=== PATIENT | male | born 1940 | race Asian ===

== ENCOUNTER 2020-05-14 08:25 | Inpatient (IN) | payer MEDICARE, MEDICAID ==
[~2020-05-14] VITALS: Ht 165.1 cm; Wt 76.7 kg
[2020-05-14 08:41] VITALS: BP 122/64
--- NOTE | 2020-05-14 08:41 | NUR ---
ED Nurse Note:pt. was BIBA from SNF with c/o coffie ground emesis x5 doday, no c/o pain, pt. is A/Ox1-2, came with f/c - urine looks cloudy
[2020-05-14] MEDS ORDERED: FINASTERIDE5 MG ORAL (08:43)
[2020-05-14] MEDS ORDERED: GLUCOSE GEL38 GM PO (08:43)
[2020-05-14] MEDS ORDERED: ACETAMINOPHEN325 M1 ORAL (08:43)
[2020-05-14] MEDS ORDERED: SEN-O-TAB8.6 MG ORAL (08:49)
[2020-05-14] MEDS ORDERED: MULTIVITAMINS1 EAC8 ORAL (08:49)
[2020-05-14] MEDS ORDERED: INSTA-GLUCOSE G31 GM PO (08:49)
[2020-05-14] MEDS ORDERED: VITAMIN D3125 MCG PO (08:49)
[2020-05-14] MEDS ORDERED: ADALAT20 MG ORAL (08:49)
[2020-05-14] MEDS ORDERED: FLOMAX0.4 MG ORAL (08:49)
[2020-05-14] MEDS ORDERED: ASCORBIC ACID500 MG ORAL (08:49)
[2020-05-14] MEDS ORDERED: PRILOSEC OTC20 MG ORAL (08:49)
[2020-05-14] MEDS ORDERED: HUMULIN R100 UNIT/1 SUBQ (08:49)
--- NOTE | 2020-05-14 09:15 | Diagnostic Imaging Report ---
EXAM: XR Chest, 1 View CLINICAL HISTORY: ABD PAIN TECHNIQUE: Frontal view of the chest. COMPARISON: No relevant prior studies available. FINDINGS/IMPRESSION: There is left base consolidation, which may represent atelectasis versus infiltrate. Correlate with lateral view. Low lung volumes secondary to poor inspiration. Emphysematous changes. No pneumothorax. Cardiomegaly. Calcified aorta. Osseous demineralization. Degenerative changes of the spine.
--- NOTE | 2020-05-14 09:25 | NUR ---
ED Nurse Note:blood ,urine and blood cx with covid swab was sent to labs, F/C was removed per MD order- urine was cloudy, pt's skin is intact, given IV fluids, continue monitoring
--- NOTE | 2020-05-14 09:37 | NUR ---
*-* INSURANCE LATE ENTRY *-* ALL AVAILABLE CLINICALS WERE FAXED BY [facility] F: [phone]
[2020-05-14 09:43] LABS: HEMATOCRIT 33.9 % (42.0-52.0); HEMOGLOBIN 10.8 G/DL (14.2-18.0); MEAN CORPUSCULAR VOLUME 92 FL (80-99); PLATELET COUNT 378 K/UL (150-450); RED BLOOD COUNT 3.67 M/UL (4.70-6.10); RED CELL DISTRIBUTION WIDTH 15.8 % (11.6-14.8); WHITE BLOOD COUNT 12.1 K/UL (4.8-10.8)
--- NOTE | 2020-05-14 09:53 | Emergency Room Report ---
History of Present Illness General Chief Complaint: Gastrointestinal Bleed Source: Medical Record, EMS Present Illness HPI 80-year-old male presents for vomiting. Presents from snf facility with coffee-ground emesis since last night. Not actively vomiting in triage. No signs of distress. No reported fevers or chills. Patient is DNR. No reported chest pain or shortness of breath. Patient tested positive for COVID 3 weeks ago. No reported cough. No other aggravating relieving factors. 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 COVID-19 Screening: Positive COVID-19 COVID-19 Testing Source: 3 weeks ago Patient History Past Medical History: DM, HTN Pertinent Family History: none Social History: Denies: smoking, alcohol use, drug use Immunizations: UTD Reviewed Nursing Documentation: PMH: Agreed; PSxH: Agreed Nursing Documentation-PMH Past Medical History: No History, Except For Hx Hypertension: Yes Hx Diabetes: Yes Review of Systems All Other Systems: limited Physical Exam Vital Signs Date Time Temp Pulse Resp B/P (MAP) Pulse Ox O2 Delivery O2 Flow Rate FiO2 05/14/20 08:26 97.3 86 18 122/64 (83) 100 Room Air Sp02 EP Interpretation: reviewed, normal General Appearance: no apparent distress, GCS 15, non-toxic, other - Nonverbal Head: normocephalic, atraumatic Eyes: bilateral eye normal inspection, bilateral eye PERRL ENT: hearing grossly normal, normal pharynx, no angioedema, normal voice Neck: full range of motion, supple/symm/no masses Respiratory: chest non-tender, lungs clear, normal breath sounds, speaking full sentences Cardiovascular #1: regular rate, rhythm, no edema Cardiovascular #2: 2+ carotid (R), 2+ carotid (L), 2+ radial (R), 2+ radial (L) , 2+ dorsalis pedis (R), 2+ dorsalis pedis (L) Gastrointestinal: normal bowel sounds, non tender, soft, non-distended, no guarding, no rebound Rectal: deferred Genitourinary: normal inspection, no CVA tenderness Musculoskeletal: back normal, normal range of motion, gait/station normal, non- tender Neurologic: alert Psychiatric: other - nonverbal Reflexes: 3+ bicep (R), 3+ bicep (L), 3+ tricep (R), 3+ tricep (L), 3+ knee (R) , 3+ knee (L) Skin: other - See nursing notes Lymphatic: no adenopathy Medical Decision Making Diagnostic Impression: Primary Impression: UGIB (upper gastrointestinal bleed) Additional Impressions: Pneumonia Qualified Codes: J15.211 - Pneumonia due to methicillin susceptible Staphylococcus aureus Renal failure Qualified Codes: N19 - Unspecified kidney failure UTI (urinary tract infection) Qualified Codes: N39.0 - Urinary tract infection, site not specified ER Course Hospital Course 80-year-old male presents with coffee-ground emesis. Differential diagnoses include: UGIB, LGIB, UTI Clinical course Patient placed on stretcher. Isolation. I wore full PPE. monitor tech. I ordered labs, EKG, chest x-ray, Protonix, Zofran Labs - noted leukocytosis, Hb/Hct stable. CO2 9, BUN/Cr 120/9.2, lactic 1.9, UA + bacteria EKG - NSr, no acute ischemic changes interpreted by me CXR - LLL infiltrate On review of previous labs/creatinine markedly elevated. Not on dialysis. Given IV fluids. Given antibiotics. Patient has [facility] insurance however [place] is not been able to facilitate transfer at this time. Patient will be admitted to hospital Case discussed with Dr. Fatima and he agreed to accept the patient to his service for further care and support I feel this is a highly complex case requiring extensive working including EKG/ Rhythm strip, Xray/CT/US, Blood/urine lab work, repeat exams while in ED, and administration of strong opiates/narcotics for pain control, admission to hospital or close patient follow up. Diagnosis - UGIB, pneumonia, renal failure, UTI Patient admitted to floor in serious condition Labs Test 05/14/20 09:00 White Blood Count 12.1 K/UL (4.8-10.8) Red Blood Count 3.67 M/UL (4.70-6.10) Hemoglobin 10.8 G/DL (14.2-18.0) Hematocrit 33.9 % (42.0-52.0) Mean Corpuscular Volume 92 FL (80-99) Mean Corpuscular Hemoglobin 29.4 PG (27.0-31.0) Mean Corpuscular Hemoglobin Concent 31.9 G/DL (32.0-36.0) Red Cell Distribution Width 15.8 % (11.6-14.8) Platelet Count 378 K/UL (150-450) Mean Platelet Volume 4.8 FL (6.5-10.1) Neutrophils (%) (Auto) % (45.0-75.0) Lymphocytes (%) (Auto) % (20.0-45.0) Monocytes (%) (Auto) % (1.0-10.0) Eosinophils (%) (Auto) % (0.0-3.0) Basophils (%) (Auto) % (0.0-2.0) Differential Total Cells Counted 100 Neutrophils % (Manual) 93 % (45-75) Lymphocytes % (Manual) 6 % (20-45) Monocytes % (Manual) 1 % (1-10) Eosinophils % (Manual) 0 % (0-3) Basophils % (Manual) 0 % (0-2) Band Neutrophils 0 % (0-8) Platelet Estimate Adequate Platelet Morphology Normal Anisocytosis 1+ Prothrombin Time 10.7 SEC (9.30-11.50) Prothromb Time International Ratio 1.0 (0.9-1.1) Activated Partial Thromboplast Time 28 SEC (23-33) Urine Color [place] Urine Appearance Turbid Urine pH 6.5 (4.5-8.0) Urine Specific [place] 1.015 (1.005-1.035) Urine Protein 3+ (NEGATIVE) Urine Glucose (UA) Negative (NEGATIVE) Urine Ketones 1+ (NEGATIVE) Urine Blood 4+ (NEGATIVE) Urine Nitrite Negative (NEGATIVE) Urine Bilirubin Negative (NEGATIVE) Urine Urobilinogen Normal MG/DL (0.0-1.0) Urine Leukocyte Esterase 3+ (NEGATIVE) Urine RBC 5-10 /HPF (0 - 0) Urine WBC Tntc /HPF (0 - 0) Urine Squamous Epithelial Cells Few /LPF (NONE/OCC) Urine Bacteria Moderate /HPF (NONE) Sodium Level 138 MMOL/L (136-145) Potassium Level 4.7 MMOL/L (3.5-5.1) Chloride Level 104 MMOL/L (98-107) Carbon Dioxide Level 9 MMOL/L (21-32) Anion Gap 25 mmol/L (5-15) Blood Urea Nitrogen 120 mg/dL (7-18) Creatinine 9.2 MG/DL (0.55-1.30) Estimat Glomerular Filtration Rate 5.5 mL/min (>60) Glucose Level 118 MG/DL (74-106) Lactic Acid Level 1.90 mmol/L (0.4-2.0) Calcium Level 8.9 MG/DL (8.5-10.1) Total Bilirubin 0.4 MG/DL (0.2-1.0) Aspartate Amino Transf (AST/SGOT) 32 U/L (15-37) Alanine Aminotransferase (ALT/SGPT) 8 U/L (12-78) Alkaline Phosphatase 121 U/L (46-116) Pro-B-Type Natriuretic Peptide 2361 pg/mL (0-125) Total Protein 7.6 G/DL (6.4-8.2) Albumin 2.9 G/DL (3.4-5.0) Globulin 4.7 g/dL Albumin/Globulin Ratio 0.6 (1.0-2.7) EKG Diagnostic Results Rate: normal Rhythm: NSR ST Segments: no acute changes ASA given to the pt in ED: No Rhythm Strip Diag. Results EP Interpretation: yes Rhythm: NSR, no PVC's Chest X-Ray Diagnostic Results Chest X-Ray Diagnostic Results : Chest X-Ray Ordered: Yes # of Views/Limited/Complete: 1 View Indication: Other EP Interpretation: Yes Interpretation: no pneumothorax, other - L sided infiltrate Impression: Other - PNA Electronically Signed by: Electronically signed by Shan Merchant MD Last Vital Signs Date Time Temp Pulse Resp B/P (MAP) Pulse Ox O2 Delivery O2 Flow Rate FiO2 05/14/20 08:41 97.3 86 18 122/64 100 Room Air Status: improved Disposition: ADMITTED INPATIENT Condition: Serious Referrals: Daniel Gresham DO (PCP) Shan Merchant MD May 14, 2020 09:53
[2020-05-14 09:55] LABS: APPEARANCE,URINE TURBID; BILIRUBIN, URINE NEGATIVE (NEGATIVE); COLOR,URINE ORANGE; GLUCOSE, URINE (UA) NEGATIVE (NEGATIVE); KETONES,URINE 1+ (NEGATIVE); LEUKOCYTE ESTERASE ,URINE 3+ (NEGATIVE); NITRITE,URINE NEGATIVE (NEGATIVE); PH,URINE 6.5 (4.5-8.0); PROTEIN,URINE 3+ (NEGATIVE); UROBILINOGEN,URINE NORMAL MG/DL (0.0-1.0)
[2020-05-14 10:00] LABS: ALANINE AMINOTRANSFERASE 8 U/L (12-78); ALBUMIN 2.9 G/DL (3.4-5.0); ALBUMIN/GLOBULIN RATIO 0.6 (1.0-2.7); ALKALINE PHOSPHATASE 121 U/L (46-116); ANION GAP 25 mmol/L (5-15); ASPARTATE AMINO TRANSFERASE 32 U/L (15-37); BILIRUBIN,TOTAL 0.4 MG/DL (0.2-1.0); BLOOD UREA NITROGEN 120 mg/dL (7-18); CALCIUM 8.9 MG/DL (8.5-10.1); CHLORIDE 104 MMOL/L (98-107); CREATININE 9.2 MG/DL (0.55-1.30); POTASSIUM 4.7 MMOL/L (3.5-5.1); SODIUM 138 MMOL/L (136-145)
[2020-05-14] MEDS ORDERED: Pantoprazole Inj IVP ONE (10:00)
[2020-05-14 10:02] VITALS: BP 117/59
[2020-05-14 10:04] LABS: CARBON DIOXIDE 9 MMOL/L (21-32)
[2020-05-14] MEDS ORDERED: Azithromycin 500 MG in NS 275 ML IV ONE (10:15)
[2020-05-14] MEDS ORDERED: Cefepime HCl 1 GM in D5W 55 ML IVPB ONE (10:15)
--- NOTE | 2020-05-14 11:58 | NUR ---
ED Nurse Note:called [facility], gave report to nurse Airam, pt. is stable for transfer
[2020-05-14] MEDS ORDERED: Sodium Bicarbonate 50ml Carp IV SCH (12:45)
--- NOTE | 2020-05-14 13:04 | NUR ---
NURSE NOTES: Received patient from ER from [facility]. Pt assigned to room 420-1 under the care of Dr. Fatima, admitted for vomiting and coffee ground emesis, alert and oriented x 1, verbal and able to make needs known in Vietnamese, no SOB noted, on room air, on contact and droplet isolation for PUI COVID 19, bed in lowest position with breaks engaged and alarm on, IV line on right AC patent and intact, admission orders given by. Dr. Fatima, pt will be NPO except ice chipsn and meds, DNR. Will continue to monitor and proceed with plan of care. Call light within reach. Addendum: 05/14/20 at 1746 by Airam Rivas RN Addendum: Patient came in with no belongings. Patient's skin is intact in the back are sacral area, no open wounds noted. Will continue to monitor.
[2020-05-14] MEDS: Sodium Bicarbonate 50 ML in 1/2 NS 1000ml 1,000 ML IV SCH ×2 (13:39→20:23)
--- NOTE | 2020-05-14 14:26 | NUR ---
CASE MANAGEMENT: INITIAL REVIEW 80 YO M MALLY FROM [facility] CC: GI BLEED >> COFFEE GROUND EMESIS PMHx: DM. HTN. SI:UPPER GI BLEED T 97.3 HR 86 RR 18 B/P 122/64 SATS 100% ON RA LABS: WBC 12.1 CO2 9 BUN 120 CR 9.2 GLU 118 AST 8 ALP 121 BNP 2361 IS:NS BOLUS X1 PROTONIX IV X1 ZOFRAN IV X1 CEFEPIME IV X1 AZITHROMYCIN IV X1 PATIENT ADMITTED TO MED/SURG 05/14/2020 @ 1139 DCP: SNF PLAN OF CARE: GI CONSULT
[2020-05-14 16:00] VITALS: BP 114/69
[2020-05-14] MEDS: NovoLOG Insulin Flexpen SUBQ SCH ×2 (16:30→20:24)
--- NOTE | 2020-05-14 19:15 | Consultation ---
DATE OF CONSULTATION: 05/14/2020 NEPHROLOGY CONSULTATION REFERRING PHYSICIAN: Ross Fatima MD REASON FOR CONSULTATION: Acute kidney injury. HISTORY OF PRESENT ILLNESS: The patient is an 79-year-old man, resident of an [facility], brought into the hospital for hematemesis. He has apparently a DNR directive. There is a history of hypertension, vascular dementia, atherosclerosis of the aorta, BPH with urinary retention, and gross hematuria. He was hospitalized in the past at [place] in 09/2019 and I believe in 02/2020 with urinary retention, evidence of hydronephrosis, and currently has an indwelling Hagen. He had a BUN of 28 and a creatinine of 1.99 on 03/14/2020 and today much higher. The patient is unable to give any further history. ALLERGIES: None known. MEDICATIONS: At the [facility] include finasteride, sliding scale Humulin R, nifedipine, vitamins, omeprazole, senna, tamsulosin, vitamin C, vitamin D3. SYSTEM REVIEW: The patient is unable. PHYSICAL EXAMINATION: GENERAL: The patient is lying in bed in the emergency room. VITAL SIGNS: Temperature 97.3, pulse 95, respirations 16, blood pressure 117/59, O2 sat 100% on room air. HEAD, EYES, EARS, NOSE, AND THROAT: Oral mucosa is dry. Sclerae are nonicteric. LUNGS: Clear. HEART: Rhythm is regular. ABDOMEN: Soft. No focal tenderness. GENITOURINARY: A Hagen catheter is in place. EXTREMITIES: No edema. There is muscle wasting. NEUROLOGIC: He is lethargic, arousable. Moves all extremities. REVIEW OF PERTINENT LABS: White count 12.1, hemoglobin is 10.8. Sodium 138, potassium 4.7, chloride 104, CO2 is 9. The BUN is 120, creatinine 9.2, glucose 118, lactic acid 1.9. BNP 2361, albumin is 2.9. Urine shows 5-10 red cells and lwx-sqthpulk-kh-count white cells per high power field. A chest x-ray was done showing cardiomegaly and calcified aorta, low lung volumes secondary to poor inspiration. IMPRESSION: 1. Upper GI bleed. 2. Acute kidney injury, likely from dehydration, possible sepsis associated with acute kidney injury. 3. Metabolic acidosis, likely from lactic acidosis and possible ketoacidosis, 2 ketones are 1+. 4. Pyuria, rule out UTI, rule out sepsis. 5. Dementia. 6. 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 PLAN: Vigorous hydration. Replacement with bicarb initially. Culture, start on broad-spectrum antibiotics. Respect family directives. Given treatment for GI bleed. Orders were reviewed and updated. Alexsander Hughes M.D. DR: BRIGHT JOB#: [id number] CC:
--- NOTE | 2020-05-14 19:21 | NUR ---
HAND-OFF: Report given to MARY[facility] Elena. Patient awake in bed without any signs of distress. No c/o pain at this time. Bed in lowest position with alarm on. Plan of care endorsed.
--- NOTE | 2020-05-14 19:22 | NUR ---
NURSE NOTES: Received a patient awake, a&ox4, and verbal. No sob,cough, fever and pain. iv is intact and asymptomatic. Bed in the lower position,locked,and alarm on. we will continue monitoring the pt. Addendum: 05/14/20 at 1937 by CHRISTIAN GONZALEZ RN discard the note above.
--- NOTE | 2020-05-14 19:23 | NUR ---
NURSE NOTES: Received a patient awake, a&ox1-2, and verbal. No sob,cough, fever and pain. iv is intact and asymptomatic. Bed in the lower position,locked,and alarm on. we will continue monitoring the pt.
[2020-05-14 20:00] VITALS: BP 133/77
[2020-05-14] MEDS: Pantoprazole Inj IVP SCH (20:23)
--- NOTE | 2020-05-14 20:48 | General Progress Note ---
Assessment/Plan Assessment/Plan: Assessment - Coffee ground emesis - UTI - Renal failure - acidosis - OBS - Recent COVID Recommendations - Hydration - NPO - PPI - Abx - monitor CBC - check COVID status - EGD or UGI once stabilized Subjective Allergies: Coded Allergies: NSAIDS (NON-STEROIDAL ANTI-INFLAMMA (Verified Allergy, Unknown, 05/14/20) Objective Last 24 Hour Vital Signs Date Time Temp Pulse Resp B/P (MAP) Pulse Ox O2 Delivery O2 Flow Rate FiO2 05/14/20 16:00 97.9 90 18 114/69 (84) 99 05/14/20 14:37 Room Air 05/14/20 12:03 97.3 95 16 117/59 100 Room Air 05/14/20 10:02 97.3 95 16 117/59 100 Room Air 05/14/20 08:41 97.3 86 18 122/64 100 Room Air 05/14/20 08:38 86 18 Room Air 05/14/20 08:26 97.3 86 18 122/64 (83) 100 Room Air Laboratory Tests 05/14/20 09:00: White Blood Count 12.1H, Red Blood Count 3.67L, Hemoglobin 10.8L, Hematocrit 33.9L, Mean Corpuscular Volume 92, Mean Corpuscular Hemoglobin 29.4, Mean Corpuscular Hemoglobin Concent 31.9L, Red Cell Distribution Width 15.8H, Platelet Count 378, Mean Platelet Volume 4.8L, Neutrophils (%) (Auto) , Lymphocytes (%) (Auto) , Monocytes (%) (Auto) , Eosinophils (%) (Auto) , Basophils (%) (Auto) , Differential Total Cells Counted 100, Neutrophils % ( Manual) 93H, Lymphocytes % (Manual) 6L, Monocytes % (Manual) 1, Eosinophils % ( Manual) 0, Basophils % (Manual) 0, Band Neutrophils 0, Platelet Estimate Adequate, Platelet Morphology Normal, Anisocytosis 1+, Prothrombin Time 10.7, Prothromb Time International Ratio 1.0, Activated Partial Thromboplast Time 28, Urine Color [place], Urine Appearance Turbid, Urine pH 6.5, Urine Specific [place] 1.015, Urine Protein 3+H, Urine Glucose (UA) Negative, Urine Ketones 1+H , Urine Blood 4+H, Urine Nitrite Negative, Urine Bilirubin Negative, Urine Urobilinogen Normal, Urine Leukocyte Esterase 3+H, Urine RBC 5-10H, Urine WBC TntcH, Urine Squamous Epithelial Cells Few, Urine Bacteria ModerateH, Sodium Level 138, Potassium Level 4.7, Chloride Level 104, Carbon Dioxide Level 9*L, Anion Gap 25H, Blood Urea Nitrogen 120H, Creatinine 9.2H, Estimat Glomerular Filtration Rate 5.5, Glucose Level 118H, Lactic Acid Level 1.90, Calcium Level 8.9, Total Bilirubin 0.4, Aspartate Amino Transf (AST/SGOT) 32, Alanine Aminotransferase (ALT/SGPT) 8L, Alkaline Phosphatase 121H, Pro-B-Type Natriuretic Peptide 2361H, Total Protein 7.6, Albumin 2.9L, Globulin 4.7, Albumin/Globulin Ratio 0.6L Height (Feet): 5 Height (Inches): 5.00 Weight (Pounds): 130 Wolfgang Lopez MD May 14, 2020 20:48
--- NOTE | 2020-05-14 23:25 | NUR ---
NURSE NOTES: Received report from neelam leon. patient is awake on bed. DNR/DNI. room air. no sob. alert and oriented x2. npo except ice chips and meds. incontinent x2. with 2 iv lines on the right ac @ 22 g, saline lock and right wrist 24 g running 1/2 ns 1000 ml sodium bicarbonate 50 ml running 175 ml/hr. bed locked and in lowest position, call light and light button within easy reach. will continue plan of care
--- NOTE | 2020-05-14 23:25 | NUR ---
HAND-OFF: Report given to MARYLU Patel. endorsed POC.
[2020-05-15] VITALS: BP 128/73
[2020-05-15] MEDS: Sodium Bicarbonate 50 ML in 1/2 NS 1000ml 1,000 ML IV SCH ×4 (01:57→20:52)
--- NOTE | 2020-05-15 02:15 | Consultation ---
DATE OF CONSULTATION: 05/14/2020 GASTROENTEROLOGY CONSULTATION CHIEF COMPLAINT: I was asked to see this patient by Dr. Ross Fatima for evaluation of upper gastrointestinal bleeding. HISTORY OF PRESENT ILLNESS: The patient is a debilitated 80-year-old man who is nonverbal from a [facility], who was brought in for coffee-ground emesis. The patient is unable to provide any history and most of the information is only available from the chart. The patient reportedly had the coffee-ground last night at the [facility]. There has been no melena or coffee-ground emesis noted in the emergency room. There is no chart reports of previous gastrointestinal issues in the past, but the patient does have a urinary issue. He does have a history of mild azotemia with A creatinine of 1.9 recently in March. Now, the creatinine is markedly elevated and he has been seen by renal it support consultant who has recommended aggressive hydration. A Hagen catheter has been placed. The patient also appears to have a urinary tract infection. PAST MEDICAL HISTORY: History of advanced dementia, hypertension, atherosclerosis, prostatic hypertrophy with a history of urinary retention, history of hematuria. The patient also has had a recent history of COVID positivity about 3 weeks ago. ALLERGIES: None. MEDICATIONS: Finasteride, insulin, nifedipine, vitamins, omeprazole, senna, tamsulosin, vitamin C, and vitamin D3. FAMILY HISTORY: Unavailable. SOCIAL HISTORY: The patient is a long-term [facility] resident. REVIEW OF SYSTEMS: Unobtainable. PHYSICAL EXAMINATION: GENERAL: A debilitated, nonverbal, man seen in the emergency room. HEENT: Normocephalic and atraumatic. Sclerae anicteric. NECK: Supple. CHEST: Clear to auscultation. CARDIAC: Regular rate. ABDOMEN: Soft. EXTREMITIES: No edema. LABORATORY DATA: Noted. ASSESSMENT: This patient presents with reported history of coffee-ground emesis, although he has not done anymore since he is in the emergency room. In addition, the patient has severe renal failure, which may be A more important problem at this time. The patient should be aggressively hydrated so that his renal parameters and his acidosis are resolved. In the meantime, his urinary tract infection should also be treated. His proton pump inhibitor can be continued and he should be monitored for further evidence of bleeding. For the time being, I will keep him NPO, but he may be advanced tomorrow if it clears. His COVID status will have to be checked. Once all the above has been clarified and evaluated, then endoscopy or upper GI series can be considered to evaluate the upper GI tract. RECOMMENDATIONS: Per above discussion and per orders written in the chart. Thank you for asking me to participate in the care of this patient. Wolfgang Lopez M.D. DR: JONAS JOB#: [id number] CC:
[2020-05-15 04:00] VITALS: BP 122/77
[2020-05-15] MEDS: NovoLOG Insulin Flexpen SUBQ SCH ×4 (05:39→21:00)
[2020-05-15 07:11] LABS: HEMATOCRIT 27.4 % (42.0-52.0); HEMOGLOBIN 8.9 G/DL (14.2-18.0); MEAN CORPUSCULAR VOLUME 91 FL (80-99); PLATELET COUNT 336 K/UL (150-450); RED BLOOD COUNT 3.02 M/UL (4.70-6.10); RED CELL DISTRIBUTION WIDTH 15.8 % (11.6-14.8); WHITE BLOOD COUNT 9.5 K/UL (4.8-10.8)
--- NOTE | 2020-05-15 07:27 | NUR ---
HAND-OFF: Report given to neelam short.patient is asleep, no sob. call light and light button within easy reach. plan of care endorsed.
--- NOTE | 2020-05-15 07:35 | NUR ---
NURSE NOTES: RECEIVED PATIENT A/A/OX2, ABLE TO FOLLOW SIMPLE COMMANDS. PATIENT APPEARED IMPULSIVE AND POTENTIALLY COMBATIVE. HOB ELEVATED FOR ASPIRATION PRECAUTION. NPO XCEPT MEDS. IVF INFUSING WELL. NO ACUTE CARDIO-RESP DISTRESS NOTED. BED IS IN THE LOWEST POSITION. SIDERAILS ARE UPX3. BED ALARM AND BRAKES ENGAGED. LOCKED @ ALL TIMES. WILL CONT TO MONITOR.
[2020-05-15 07:46] LABS: ALANINE AMINOTRANSFERASE 7 U/L (12-78); ALBUMIN 2.4 G/DL (3.4-5.0); ALBUMIN/GLOBULIN RATIO 0.7 (1.0-2.7); ALKALINE PHOSPHATASE 100 U/L (46-116); ANION GAP 24 mmol/L (5-15); ASPARTATE AMINO TRANSFERASE 67 U/L (15-37); BILIRUBIN,TOTAL 0.5 MG/DL (0.2-1.0); BLOOD UREA NITROGEN 118 mg/dL (7-18); CALCIUM 7.5 MG/DL (8.5-10.1); CARBON DIOXIDE 12 MMOL/L (21-32); CHLORIDE 107 MMOL/L (98-107); CREATINE KINASE 109 U/L (26-308); CREATININE 8.7 MG/DL (0.55-1.30); SODIUM 143 MMOL/L (136-145)
[2020-05-15 08:00] VITALS: BP 120/74
[2020-05-15] MEDS: Tamsulosin 0.4mg cap ORAL SCH (08:42)
[2020-05-15] MEDS: Multivitamin w/Minerals tab ORAL SCH (08:42)
[2020-05-15] MEDS: Ascorbic Acid 500mg tab ORAL SCH (08:42)
[2020-05-15] MEDS: Sennosides 8.6mg tab ORAL SCH (08:42)
[2020-05-15] MEDS: Pantoprazole Inj IVP SCH ×2 (08:59→20:53)
[2020-05-15] MEDS: Cefepime HCl 1 GM in D5W 55 ML IVPB SCH (08:59)
[2020-05-15] MEDS ORDERED: Pantoprazole Inj IVP SCH (09:00)
[2020-05-15 12:00] VITALS: BP 126/77
--- NOTE | 2020-05-15 12:59 | NUR ---
CASE MANAGEMENT: REVIEW 05/15/20 SI:UPPER GI BLEED 98.0 101 19 126/77 99% ON RA BUN/CREAT 118/8.7 URIC ACID 15.2 CA+ 7.5 ALB 2.4 H.H 8.9/27.4 CO2 12 ANION GAP 24 IS:IV CEFEPIME QD IV NS BICARB @175ML/HR IV PROTONIX BID PROSCAR PO QD MULT VIT PO QD FLOMAX PO QD \: 4E MED SURG UNIT DCP: SNF PLAN OF CARE: NPO AND ADVANCE IN AM EGD GI SERIES
--- NOTE | 2020-05-15 13:35 | General Progress Note ---
Assessment/Plan Assessment/Plan: Assessment - Coffee ground emesis - resolved - Anemia - drop in H&H likely dilutional - UTI - Renal failure- improved Cr - acidosis - OBS - Recent COVID Recommendations - Hydration - Clears - PPI - Abx - monitor CBC - check COVID status - EGD or UGI once stabilized Subjective Allergies: Coded Allergies: NSAIDS (NON-STEROIDAL ANTI-INFLAMMA (Verified Allergy, Unknown, 05/14/20) Subjective Above noted d/w staff command and control officer no events overnight no hematemesis or melena on IVF Objective Last 24 Hour Vital Signs Date Time Temp Pulse Resp B/P (MAP) Pulse Ox O2 Delivery O2 Flow Rate FiO2 05/15/20 12:00 98.0 101 19 126/77 (93) 99 05/15/20 09:00 Room Air 05/15/20 08:00 98.0 98 20 120/74 (89) 98 05/15/20 04:00 97.9 100 19 122/77 (92) 99 05/15/20 00:00 98.4 99 19 128/73 (91) 96 05/14/20 21:00 Room Air 05/14/20 20:00 97.3 105 19 133/77 (95) 94 05/14/20 16:00 97.9 90 18 114/69 (84) 99 05/14/20 14:37 Room Air Intake and Output 05/14/20 05/15/20 19:00 07:00 Intake Total 875 ml 175 ml Output Total 720 ml 0 ml Balance 155 ml 175 ml Intake IV Total 875 ml 175 ml Output Urine Total 720 ml Emesis 0 ml 0 ml # Voids 2 3 Laboratory Tests 05/15/20 06:40: White Blood Count 9.5, Red Blood Count 3.02L, Hemoglobin 8.9L, Hematocrit 27.4L , Mean Corpuscular Volume 91, Mean Corpuscular Hemoglobin 29.4, Mean Corpuscular Hemoglobin Concent 32.4, Red Cell Distribution Width 15.8H, Platelet Count 336, Mean Platelet Volume 4.6L, Neutrophils (%) (Auto) , Lymphocytes (%) (Auto) , Monocytes (%) (Auto) , Eosinophils (%) (Auto) , Basophils (%) (Auto) , Differential Total Cells Counted 100, Neutrophils % ( Manual) 90H, Lymphocytes % (Manual) 7L, Monocytes % (Manual) 3, Eosinophils % ( Manual) 0, Basophils % (Manual) 0, Band Neutrophils 0, Platelet Estimate Adequate, Platelet Morphology Normal, Anisocytosis 1+, Sodium Level 143, Potassium Level 4.0, Chloride Level 107, Carbon Dioxide Level 12L, Anion Gap 24H , Blood Urea Nitrogen 118H, Creatinine 8.7H, Estimat Glomerular Filtration Rate 5.9, Glucose Level 83, Uric Acid 15.2H, Calcium Level 7.5L, Total Bilirubin 0.5 , Aspartate Amino Transf (AST/SGOT) 67H, Alanine Aminotransferase (ALT/SGPT) 7L , Alkaline Phosphatase 100, Total Creatine Kinase 109, Total Protein 5.9L, Albumin 2.4L, Globulin 3.5, Albumin/Globulin Ratio 0.7L Height (Feet): 5 Height (Inches): 5.00 Weight (Pounds): 130 Objective Elderly man NCAT supple CTA RR abd soft NT ND Wolfgang Lopez MD May 15, 2020 13:35
--- NOTE | 2020-05-15 15:05 | History & Physical ---
History and Physical History & Physicial 80-year-old man brought in for coffee-ground emesis. The patient is unable to provide any history and most of the information is only available from the chart. There is no prior gastrointestinal issues in the past. Patient with underlying CKD and now acute decompensation A Gilbert catheter has been placed. Per ER, patient also with possible UTI PAST MEDICAL HISTORY: advanced dementia, hypertension, atherosclerosis, BPH. COVID + 3 weeks ago. ALLERGIES: None. MEDICATIONS: reviewed FAMILY HISTORY: Unavailable. SOCIAL HISTORY: alf resident. REVIEW OF SYSTEMS: Unobtainable. PHYSICAL EXAMINATION: GENERAL: A debilitated, nonverbal, man HEENT: Normocephalic and atraumatic. Sclerae anicteric. NECK: Supple. CHEST: Clear without rhonchi or wheeze CARDIAC: Regular rate. ABDOMEN: Soft. EXTREMITIES: No edema. LABORATORY DATA: Labs Test 05/14/20 09:00 05/15/20 06:40 White Blood Count 12.1 K/UL (4.8-10.8) 9.5 K/UL (4.8-10.8) Red Blood Count 3.67 M/UL (4.70-6.10) 3.02 M/UL (4.70-6.10) Hemoglobin 10.8 G/DL (14.2-18.0) 8.9 G/DL (14.2-18.0) Hematocrit 33.9 % (42.0-52.0) 27.4 % (42.0-52.0) Mean Corpuscular Volume 92 FL (80-99) 91 FL (80-99) Mean Corpuscular Hemoglobin 29.4 PG (27.0-31.0) 29.4 PG (27.0-31.0) Mean Corpuscular Hemoglobin Concent 31.9 G/DL (32.0-36.0) 32.4 G/DL (32.0-36.0) Red Cell Distribution Width 15.8 % (11.6-14.8) 15.8 % (11.6-14.8) Platelet Count 378 K/UL (150-450) 336 K/UL (150-450) Mean Platelet Volume 4.8 FL (6.5-10.1) 4.6 FL (6.5-10.1) Neutrophils (%) (Auto) % (45.0-75.0) % (45.0-75.0) Lymphocytes (%) (Auto) % (20.0-45.0) % (20.0-45.0) Monocytes (%) (Auto) % (1.0-10.0) % (1.0-10.0) Eosinophils (%) (Auto) % (0.0-3.0) % (0.0-3.0) Basophils (%) (Auto) % (0.0-2.0) % (0.0-2.0) Differential Total Cells Counted 100 100 Neutrophils % (Manual) 93 % (45-75) 90 % (45-75) Lymphocytes % (Manual) 6 % (20-45) 7 % (20-45) Monocytes % (Manual) 1 % (1-10) 3 % (1-10) Eosinophils % (Manual) 0 % (0-3) 0 % (0-3) Basophils % (Manual) 0 % (0-2) 0 % (0-2) Band Neutrophils 0 % (0-8) 0 % (0-8) Platelet Estimate Adequate Adequate Platelet Morphology Normal Normal Anisocytosis 1+ 1+ Prothrombin Time 10.7 SEC (9.30-11.50) Prothromb Time International Ratio 1.0 (0.9-1.1) Activated Partial Thromboplast Time 28 SEC (23-33) Urine Color [place] Urine Appearance Turbid Urine pH 6.5 (4.5-8.0) Urine Specific [place] 1.015 (1.005-1.035) Urine Protein 3+ (NEGATIVE) Urine Glucose (UA) Negative (NEGATIVE) Urine Ketones 1+ (NEGATIVE) Urine Blood 4+ (NEGATIVE) Urine Nitrite Negative (NEGATIVE) Urine Bilirubin Negative (NEGATIVE) Urine Urobilinogen Normal MG/DL (0.0-1.0) Urine Leukocyte Esterase 3+ (NEGATIVE) Urine RBC 5-10 /HPF (0 - 0) Urine WBC Tntc /HPF (0 - 0) Urine Squamous Epithelial Cells Few /LPF (NONE/OCC) Urine Bacteria Moderate /HPF (NONE) Sodium Level 138 MMOL/L (136-145) 143 MMOL/L (136-145) Potassium Level 4.7 MMOL/L (3.5-5.1) 4.0 MMOL/L (3.5-5.1) Chloride Level 104 MMOL/L (98-107) 107 MMOL/L (98-107) Carbon Dioxide Level 9 MMOL/L (21-32) 12 MMOL/L (21-32) Anion Gap 25 mmol/L (5-15) 24 mmol/L (5-15) Blood Urea Nitrogen 120 mg/dL (7-18) 118 mg/dL (7-18) Creatinine 9.2 MG/DL (0.55-1.30) 8.7 MG/DL (0.55-1.30) Estimat Glomerular Filtration Rate 5.5 mL/min (>60) 5.9 mL/min (>60) Glucose Level 118 MG/DL (74-106) 83 MG/DL (74-106) Lactic Acid Level 1.90 mmol/L (0.4-2.0) Calcium Level 8.9 MG/DL (8.5-10.1) 7.5 MG/DL (8.5-10.1) Total Bilirubin 0.4 MG/DL (0.2-1.0) 0.5 MG/DL (0.2-1.0) Aspartate Amino Transf (AST/SGOT) 32 U/L (15-37) 67 U/L (15-37) Alanine Aminotransferase (ALT/SGPT) 8 U/L (12-78) 7 U/L (12-78) Alkaline Phosphatase 121 U/L (46-116) 100 U/L (46-116) Pro-B-Type Natriuretic Peptide 2361 pg/mL (0-125) Total Protein 7.6 G/DL (6.4-8.2) 5.9 G/DL (6.4-8.2) Albumin 2.9 G/DL (3.4-5.0) 2.4 G/DL (3.4-5.0) Globulin 4.7 g/dL 3.5 g/dL Albumin/Globulin Ratio 0.6 (1.0-2.7) 0.7 (1.0-2.7) Uric Acid 15.2 MG/DL (2.6-7.2) Total Creatine Kinase 109 U/L (26-308) IMPRESSION GIB coffee ground emesis anemia acute on CKD chronic encephalopathy PCM severe dementia PLAN IV hydration gilbert IV antibiotics gi follow up DNR impression, plan, and exam edited and reviewed in detail care discussed with Ross Hardwick MD May 15, 2020 15:05
[2020-05-15 15:59] VITALS: BP 130/74
--- NOTE | 2020-05-15 16:54 | Nephrology Progress Note ---
Assessment/Plan Problem List: (1) Metabolic acidosis (2) Dehydration (3) MAHAD (acute kidney injury) (4) UGIB (upper gastrointestinal bleed) Plan continue iv with bicarb, gilbert as history of urinary retention Subjective ROS Limited/Unobtainable: Yes Objective Objective Last 24 Hour Vital Signs Date Time Temp Pulse Resp B/P (MAP) Pulse Ox O2 Delivery O2 Flow Rate FiO2 05/15/20 15:59 98.1 96 20 130/74 (92) 98 05/15/20 12:00 98.0 101 19 126/77 (93) 99 05/15/20 09:00 Room Air 05/15/20 08:00 98.0 98 20 120/74 (89) 98 05/15/20 04:00 97.9 100 19 122/77 (92) 99 05/15/20 00:00 98.4 99 19 128/73 (91) 96 05/14/20 21:00 Room Air 05/14/20 20:00 97.3 105 19 133/77 (95) 94 Intake and Output 05/14/20 05/15/20 19:00 07:00 Intake Total 875 ml 175 ml Output Total 720 ml 0 ml Balance 155 ml 175 ml Intake IV Total 875 ml 175 ml Output Urine Total 720 ml Emesis 0 ml 0 ml # Voids 2 3 Laboratory Tests 05/15/20 06:40: White Blood Count 9.5, Red Blood Count 3.02L, Hemoglobin 8.9L, Hematocrit 27.4L , Mean Corpuscular Volume 91, Mean Corpuscular Hemoglobin 29.4, Mean Corpuscular Hemoglobin Concent 32.4, Red Cell Distribution Width 15.8H, Platelet Count 336, Mean Platelet Volume 4.6L, Neutrophils (%) (Auto) , Lymphocytes (%) (Auto) , Monocytes (%) (Auto) , Eosinophils (%) (Auto) , Basophils (%) (Auto) , Differential Total Cells Counted 100, Neutrophils % ( Manual) 90H, Lymphocytes % (Manual) 7L, Monocytes % (Manual) 3, Eosinophils % ( Manual) 0, Basophils % (Manual) 0, Band Neutrophils 0, Platelet Estimate Adequate, Platelet Morphology Normal, Anisocytosis 1+, Sodium Level 143, Potassium Level 4.0, Chloride Level 107, Carbon Dioxide Level 12L, Anion Gap 24H , Blood Urea Nitrogen 118H, Creatinine 8.7H, Estimat Glomerular Filtration Rate 5.9, Glucose Level 83, Uric Acid 15.2H, Calcium Level 7.5L, Total Bilirubin 0.5 , Aspartate Amino Transf (AST/SGOT) 67H, Alanine Aminotransferase (ALT/SGPT) 7L , Alkaline Phosphatase 100, Total Creatine Kinase 109, Total Protein 5.9L, Albumin 2.4L, Globulin 3.5, Albumin/Globulin Ratio 0.7L 05/15/20 12:12: POC Whole Blood Glucose [Pending] 05/15/20 16:19: POC Whole Blood Glucose [Pending] Height (Feet): 5 Height (Inches): 5.00 Weight (Pounds): 130 General Appearance: lethargic, confused EENT: other - dry mouth Cardiovascular: regular rhythm Respiratory/Chest: lungs clear Abdomen: soft Extremities: no edema Neurologic: disoriented Alexsander Hughes MD May 15, 2020 16:54
--- NOTE | 2020-05-15 19:19 | NUR ---
HAND-OFF: Report given to ELA.
--- NOTE | 2020-05-15 19:25 | NUR ---
NURSE NOTES: Pt. received from SOHAN Vigil. Pt. awake and alert to name, breathing is even and unlabored on room air, no indications of pain at this time. IV noted in right wrist 24g intact and patent running fluids. Bed is low and locked, side rails x3 up for safety and call light is in reach.
[2020-05-15 20:00] VITALS: BP 140/78
[2020-05-16] VITALS: BP 126/78
[2020-05-16] MEDS: Sodium Bicarbonate 50 ML in 1/2 NS 1000ml 1,000 ML IV SCH ×2 (01:33→08:21)
[2020-05-16 04:00] VITALS: BP 114/70
[2020-05-16] MEDS: NovoLOG Insulin Flexpen SUBQ SCH ×4 (05:53→21:00)
[2020-05-16 07:12] LABS: BASOPHILS % (AUTO) 0.3 % (0.0-2.0); HEMATOCRIT 27.1 % (42.0-52.0); HEMOGLOBIN 8.8 G/DL (14.2-18.0); LYMPHOCYTES % (AUTO) 7.5 % (20.0-45.0); MEAN CORPUSCULAR VOLUME 89 FL (80-99); MONOCYTES % (AUTO) 7.8 % (1.0-10.0); NEUTROPHILS % (AUTO) 83.4 % (45.0-75.0); PLATELET COUNT 354 K/UL (150-450); RED BLOOD COUNT 3.03 M/UL (4.70-6.10); RED CELL DISTRIBUTION WIDTH 15.3 % (11.6-14.8); WHITE BLOOD COUNT 11.6 K/UL (4.8-10.8)
[2020-05-16 07:25] LABS: ALANINE AMINOTRANSFERASE 6 U/L (12-78); ALBUMIN 1.9 G/DL (3.4-5.0); ALBUMIN/GLOBULIN RATIO 0.5 (1.0-2.7); ALKALINE PHOSPHATASE 96 U/L (46-116); ANION GAP 19 mmol/L (5-15); ASPARTATE AMINO TRANSFERASE 36 U/L (15-37); BILIRUBIN,TOTAL 0.5 MG/DL (0.2-1.0); BLOOD UREA NITROGEN 107 mg/dL (7-18); CALCIUM 7.2 MG/DL (8.5-10.1); CARBON DIOXIDE 17 MMOL/L (21-32); CHLORIDE 105 MMOL/L (98-107); CREATININE 7.9 MG/DL (0.55-1.30); POTASSIUM 3.1 MMOL/L (3.5-5.1); SODIUM 141 MMOL/L (136-145)
--- NOTE | 2020-05-16 07:45 | NUR ---
HAND-OFF: Report given to MARYLU Ponce.
[2020-05-16 08:00] VITALS: BP 119/67
--- NOTE | 2020-05-16 08:00 | NUR ---
NURSE NOTES: received patient in bed, no sign of distress, pain or discomfort. Non-verbal, [place]ian nationality, possibly understands some Italian as he agrees/disagrees with face demeanor/head movement. R wrist and RAC IV access, receives IVF, no sign of infiltration noted. Call light within easy reach, siderails up x2, bed locked at lowest position possible. Incontinent x2. Will continue to monitor patient and follow up with the plan of care.
[2020-05-16] MEDS: Tamsulosin 0.4mg cap ORAL SCH (08:22)
[2020-05-16] MEDS: Ascorbic Acid 500mg tab ORAL SCH (08:22)
[2020-05-16] MEDS: Cefepime HCl 1 GM in D5W 55 ML IVPB SCH (08:22)
[2020-05-16] MEDS: Multivitamin w/Minerals tab ORAL SCH (08:23)
[2020-05-16] MEDS: Sennosides 8.6mg tab ORAL SCH (08:23)
[2020-05-16] MEDS: Pantoprazole Inj IVP SCH ×2 (08:23→21:05)
--- NOTE | 2020-05-16 08:28 | General Progress Note ---
Assessment/Plan Assessment/Plan: IMPRESSION GIB coffee ground emesis anemia acute on CKD chronic encephalopathy PCM severe dementia UTI PLAN IV hydration gilbert IV antibiotics gi follow up and clearance DNR impression, plan, and exam edited and reviewed in detail care discussed with RN Subjective ROS Limited/Unobtainable: Yes Allergies: Coded Allergies: NSAIDS (NON-STEROIDAL ANTI-INFLAMMA (Verified Allergy, Unknown, 05/14/20) Subjective gi noted labs reviewed Objective Last 24 Hour Vital Signs Date Time Temp Pulse Resp B/P (MAP) Pulse Ox O2 Delivery O2 Flow Rate FiO2 05/16/20 04:00 97.8 63 18 114/70 (85) 98 05/16/20 00:00 97.2 88 19 126/78 (94) 96 05/15/20 21:00 Room Air 05/15/20 20:00 97.9 85 19 140/78 (98) 95 05/15/20 15:59 98.1 96 20 130/74 (92) 98 05/15/20 12:00 98.0 101 19 126/77 (93) 99 05/15/20 09:00 Room Air Intake and Output 05/15/20 05/16/20 19:00 07:00 Intake Total 800 ml 2725 ml Output Total 320 ml Balance 800 ml 2405 ml Intake Oral 800 ml 800 ml IV Total 1925 ml Output Urine Total 320 ml Emesis 0 ml # Voids 6 6 Laboratory Tests 05/15/20 12:12: POC Whole Blood Glucose [Pending] 05/15/20 16:19: POC Whole Blood Glucose [Pending] 05/16/20 04:00: White Blood Count 11.6H, Red Blood Count 3.03L, Hemoglobin 8.8L, Hematocrit 27.1L, Mean Corpuscular Volume 89, Mean Corpuscular Hemoglobin 29.2, Mean Corpuscular Hemoglobin Concent 32.7, Red Cell Distribution Width 15.3H, Platelet Count 354, Mean Platelet Volume 4.9L, Neutrophils (%) (Auto) 83.4H, Lymphocytes (%) (Auto) 7.5L, Monocytes (%) (Auto) 7.8, Eosinophils (%) (Auto) 1.0, Basophils (%) (Auto) 0.3, Sodium Level 141, Potassium Level 3.1L, Chloride Level 105, Carbon Dioxide Level 17L, Anion Gap 19H, Blood Urea Nitrogen 107H, Creatinine 7.9H, Estimat Glomerular Filtration Rate 6.6, Glucose Level 102, Calcium Level 7.2L, Total Bilirubin 0.5, Aspartate Amino Transf (AST/SGOT) 36, Alanine Aminotransferase (ALT/SGPT) 6L, Alkaline Phosphatase 96, Total Protein 5.7L, Albumin 1.9L, Globulin 3.8, Albumin/Globulin Ratio 0.5L 05/16/20 05:48: POC Whole Blood Glucose 87 Height (Feet): 5 Height (Inches): 5.00 Weight (Pounds): 130 Objective deferred due to possible COVID Ross Fatima MD May 16, 2020 08:28
--- NOTE | 2020-05-16 10:26 | NUR ---
*-* INSURANCE LATE ENTRY *-* ALL AVAILABLE CLINICALS AND REVIEWS WERE FAXED BY DAISY [facility] F: [phone] Addendum: 05/17/20 at 1055 by SHANTEL JAQUEZ GLADIS EDWAR#[id number] FAX CLINICALS TO [place] P:[phone] F: [phone]
--- NOTE | 2020-05-16 10:47 | General Progress Note ---
Assessment/Plan Assessment/Plan: Assessment - Coffee ground emesis - resolved - Anemia - drop in H&H likely dilutional - UTI - Renal failure- improved Cr - acidosis - OBS - Recent COVID --> COVID (+) Recommendations - Hydration - advance diet - PPI - Abx - monitor CBC - GI W/u on hold Subjective Allergies: Coded Allergies: NSAIDS (NON-STEROIDAL ANTI-INFLAMMA (Verified Allergy, Unknown, 05/14/20) Subjective Above noted Calm resting comfortably Objective Last 24 Hour Vital Signs Date Time Temp Pulse Resp B/P (MAP) Pulse Ox O2 Delivery O2 Flow Rate FiO2 05/16/20 08:00 97.8 88 18 119/67 (84) 94 05/16/20 04:00 97.8 63 18 114/70 (85) 98 05/16/20 00:00 97.2 88 19 126/78 (94) 96 05/15/20 21:00 Room Air 05/15/20 20:00 97.9 85 19 140/78 (98) 95 05/15/20 15:59 98.1 96 20 130/74 (92) 98 05/15/20 12:00 98.0 101 19 126/77 (93) 99 Intake and Output 05/15/20 05/16/20 19:00 07:00 Intake Total 800 ml 2725 ml Output Total 320 ml Balance 800 ml 2405 ml Intake Oral 800 ml 800 ml IV Total 1925 ml Output Urine Total 320 ml Emesis 0 ml # Voids 6 6 Laboratory Tests 05/15/20 12:12: POC Whole Blood Glucose [Pending] 05/15/20 16:19: POC Whole Blood Glucose [Pending] 05/16/20 04:00: White Blood Count 11.6H, Red Blood Count 3.03L, Hemoglobin 8.8L, Hematocrit 27.1L, Mean Corpuscular Volume 89, Mean Corpuscular Hemoglobin 29.2, Mean Corpuscular Hemoglobin Concent 32.7, Red Cell Distribution Width 15.3H, Platelet Count 354, Mean Platelet Volume 4.9L, Neutrophils (%) (Auto) 83.4H, Lymphocytes (%) (Auto) 7.5L, Monocytes (%) (Auto) 7.8, Eosinophils (%) (Auto) 1.0, Basophils (%) (Auto) 0.3, Sodium Level 141, Potassium Level 3.1L, Chloride Level 105, Carbon Dioxide Level 17L, Anion Gap 19H, Blood Urea Nitrogen 107H, Creatinine 7.9H, Estimat Glomerular Filtration Rate 6.6, Glucose Level 102, Calcium Level 7.2L, Total Bilirubin 0.5, Aspartate Amino Transf (AST/SGOT) 36, Alanine Aminotransferase (ALT/SGPT) 6L, Alkaline Phosphatase 96, Total Protein 5.7L, Albumin 1.9L, Globulin 3.8, Albumin/Globulin Ratio 0.5L 05/16/20 05:48: POC Whole Blood Glucose 87 Height (Feet): 5 Height (Inches): 5.00 Weight (Pounds): 130 Objective Elderly man awake responsive abd soft NT Wolfgang Pepe MD May 16, 2020 10:47
--- NOTE | 2020-05-16 11:38 | NUR ---
MS SQL SERVER DEVELOPER NOTE:INSURANCE CALL MADE TO ELDERTON ANNMARIE @ [phone]. S/W DARRICK AND PROVIDED VERBAL REPORT ON PATIENT STATUS AND INFORMED THAT CLINICALS HAVE BEEN FAXED TO [phone] TODAY. PER DARRICK, THIS CM CALL BACK INFO WILL BE FORWARDED TO CM FOR REVIEW AND [facility] WILL UPDATE [facility] CM REGARDING TRANSFER. PER DARRICK, CM NOT YET ASSIGNED AND ALL CM CURRENTLY IN MORNING HUDDLE.
[2020-05-16 12:00] VITALS: BP 116/65
--- NOTE | 2020-05-16 14:22 | NUR ---
CASE MANAGEMENT:REVIEW SI;UPPER GI BLEED. METABOLIC ACIDOSIS. ENCEPHALOPATHY. 97.2 88 19 126/78 93% ON RA WBC 11.6 H/H 8.8/27.1 K+ 3.1 BUN 107 CR 7.9 CA 7.2 ALB 1.9 IS;NA BiCARB/NSS @ 175 ML/HR CEFEPIME IV FLOMAX PO PROTONIX IV PROSCAR PO MED SURG STATUS DCP;PATIENT IS FROM [facility]
[2020-05-16 16:00] VITALS: BP 141/79
--- NOTE | 2020-05-16 16:30 | NUR ---
NURSE NOTES: notified dr Fatima regarding COVID19 result (+) today, and K 3.1. Order received and processed.
--- NOTE | 2020-05-16 19:31 | NUR ---
HAND-OFF: Report given to MARYLU Mensah.
--- NOTE | 2020-05-16 19:32 | NUR ---
NURSE NOTES: Received patient in bed, alert, oriented x1/2, can be combative, and withdrawn, incontinent of bowel and bladder, both IV sites are clean dry and intact, patient is bedbound, speaks Macedonian primarily with little Azeri. Call light is within reach, bed is lowered, locked, alarm is on. Will continue to monitor for comfort and safety.
[2020-05-16 20:00] VITALS: BP 113/68
[2020-05-17 00:30] VITALS: BP 109/70
[2020-05-17 04:47] VITALS: BP 116/66
[2020-05-17] MEDS: NovoLOG Insulin Flexpen SUBQ SCH ×4 (05:44→20:47)
--- NOTE | 2020-05-17 07:12 | NUR ---
HAND-OFF: Report given to Ford VALERO.
--- NOTE | 2020-05-17 07:15 | NUR ---
NURSE NOTES: Received patient in bed,easily arousable to name. Breathing is even and unlabored. No s/s of pain or discomfort @ this time. Bed is in lowest position and locked. Call light within reach. Bed alarm is on. Will continue plan of care.
[2020-05-17 08:00] VITALS: BP 121/72
[2020-05-17] MEDS: Multivitamin w/Minerals tab ORAL SCH (08:17)
[2020-05-17] MEDS: Ascorbic Acid 500mg tab ORAL SCH (08:18)
[2020-05-17] MEDS: Pantoprazole Inj IVP SCH ×2 (08:18→20:29)
[2020-05-17] MEDS: Cefepime HCl 1 GM in D5W 55 ML IVPB SCH (08:18)
[2020-05-17] MEDS: Tamsulosin 0.4mg cap ORAL SCH (08:18)
[2020-05-17] MEDS: Sennosides 8.6mg tab ORAL SCH (08:18)
--- NOTE | 2020-05-17 08:33 | General Progress Note ---
Assessment/Plan Assessment/Plan: IMPRESSION GIB coffee ground emesis anemia acute on CKD chronic encephalopathy PCM severe dementia UTI COVID+ PLAN IV hydration with caution gilbert IV antibiotics gi follow up and clearance renal follow up and monitor renal function closely DNR impression, plan, and exam edited and reviewed in detail care discussed with RN Subjective Allergies: Coded Allergies: NSAIDS (NON-STEROIDAL ANTI-INFLAMMA (Verified Allergy, Unknown, 05/14/20) Subjective gi noted COVID+ workup on hold labs reviewed Objective Last 24 Hour Vital Signs Date Time Temp Pulse Resp B/P (MAP) Pulse Ox O2 Delivery O2 Flow Rate FiO2 05/17/20 04:47 97.6 90 15 116/66 (83) 95 05/17/20 00:30 98.1 86 16 109/70 (83) 95 05/16/20 21:27 Room Air 05/16/20 20:00 97.8 91 14 113/68 (83) 95 05/16/20 16:00 97.5 104 18 141/79 (99) 95 05/16/20 12:00 97.5 82 18 116/65 (82) 93 05/16/20 09:00 Room Air Intake and Output 05/16/20 05/17/20 19:00 07:00 Intake Total 2007 ml 360 ml Balance 2007 ml 360 ml Intake Oral 360 ml 360 ml IV Total 1648 ml # Voids 2 # Bowel Movements 1 Height (Feet): 5 Height (Inches): 5.00 Weight (Pounds): 130 Objective deferred due to possible COVID Ross Fatmia MD May 17, 2020 08:33
--- NOTE | 2020-05-17 08:40 | NUR ---
NURSE NOTES: Patient had large amount of bowel movement. Proper incontinent care done, skin is intact and applied skin barrier cream and covered sacral with optifoam for prophylaxis. Patient urinated with adequate amount.
[2020-05-17 08:49] LABS: HEMATOCRIT 26.6 % (42.0-52.0); HEMOGLOBIN 8.6 G/DL (14.2-18.0); MEAN CORPUSCULAR VOLUME 90 FL (80-99); PLATELET COUNT 365 K/UL (150-450); RED BLOOD COUNT 2.95 M/UL (4.70-6.10); RED CELL DISTRIBUTION WIDTH 15.6 % (11.6-14.8); WHITE BLOOD COUNT 8.3 K/UL (4.8-10.8)
[2020-05-17 08:58] LABS: ANION GAP 19 mmol/L (5-15); BLOOD UREA NITROGEN 108 mg/dL (7-18); CALCIUM 6.7 MG/DL (8.5-10.1); CARBON DIOXIDE 20 MMOL/L (21-32); CHLORIDE 100 MMOL/L (98-107); POTASSIUM 3.7 MMOL/L (3.5-5.1); SODIUM 138 MMOL/L (136-145)
--- NOTE | 2020-05-17 10:49 | NUR ---
CYBER INCIDENT HANDLER NOTE:INSURANCE CALL MADE TO GRIFFITH ANNMARIE @ [phone]. ON HOLD WITH NO ANSWER FOR MORE THAN 45 MINUTES. WILL CALL BACK.
[2020-05-17 12:00] VITALS: BP 119/69
--- NOTE | 2020-05-17 12:14 | NUR ---
*-* INSURANCE LATE ENTRY *-* ALL AVAILABLE CLINICALS AND REVIEWS WERE FAXED BY DAISY GRIFFITH SR AUTH#[id number] P:[phone] F: [phone]
--- NOTE | 2020-05-17 13:10 | Nephrology Progress Note ---
Assessment/Plan Plan Acute Nonoliguric Renal Failure. Needs HD. DW Pt's DPOA. Consent obtained. Subjective Subjective Confused Objective Objective Last 24 Hour Vital Signs Date Time Temp Pulse Resp B/P (MAP) Pulse Ox O2 Delivery O2 Flow Rate FiO2 05/17/20 12:00 97.5 80 18 119/69 (86) 95 05/17/20 09:00 Room Air 05/17/20 08:00 97.8 85 18 121/72 (88) 95 05/17/20 04:47 97.6 90 15 116/66 (83) 95 05/17/20 00:30 98.1 86 16 109/70 (83) 95 05/16/20 21:27 Room Air 05/16/20 20:00 97.8 91 14 113/68 (83) 95 05/16/20 16:00 97.5 104 18 141/79 (99) 95 Intake and Output 05/16/20 05/17/20 19:00 07:00 Intake Total 2008 ml 360 ml Balance 2008 ml 360 ml Intake Oral 360 ml 360 ml IV Total 1648 ml # Voids 2 # Bowel Movements 1 Laboratory Tests 05/17/20 08:05: White Blood Count 8.3, Red Blood Count 2.95L, Hemoglobin 8.6L, Hematocrit 26.6L , Mean Corpuscular Volume 90, Mean Corpuscular Hemoglobin 29.2, Mean Corpuscular Hemoglobin Concent 32.4, Red Cell Distribution Width 15.6H, Platelet Count 365, Mean Platelet Volume 4.7L, Neutrophils (%) (Auto) , Lymphocytes (%) (Auto) , Monocytes (%) (Auto) , Eosinophils (%) (Auto) , Basophils (%) (Auto) , Differential Total Cells Counted 100, Neutrophils % ( Manual) 85H, Lymphocytes % (Manual) 9L, Monocytes % (Manual) 4, Eosinophils % ( Manual) 2, Basophils % (Manual) 0, Band Neutrophils 0, Platelet Estimate Adequate, Platelet Morphology Normal, Hypochromasia 1+, Anisocytosis 1+, Ovalocytes Occasional, Sodium Level 138, Potassium Level 3.7, Chloride Level 100 , Carbon Dioxide Level 20L, Anion Gap 19H, Blood Urea Nitrogen 108H, Creatinine 8.0H, Estimat Glomerular Filtration Rate 6.5, Glucose Level 99, Calcium Level 6.7L Height (Feet): 5 Height (Inches): 5.00 Weight (Pounds): 130 Objective Pale. Confused. CV RR Lungs CTA Abd SNT. BS + E No CCE Linda Robertson MD May 17, 2020 13:10
--- NOTE | 2020-05-17 13:13 | NUR ---
RD ASSESSMENT & RECOMMENDATIONS SEE CARE ACTIVITY FOR COMPLETE ASSESSMENT DAILY ESTIMATED NEEDS: Needs based on Renal, acute on CKD, 59kg 25-35 kcals/kg 2219-4719 total kcals 1-1.5 g protein/kg 59-89 g total protein Fluid per MD NUTRITION DIAGNOSIS: Decreased sodium needs r/t renal dysfunction as evidenced by pt w/ acute on CKD, Creat now 8.0, BUN 108. CURRENT DIET: Renal PO DIET RECOMMENDATIONS: LOW NA DIET/ texture as tolerated ADDITIONAL RECOMMENDATIONS: 1) Monitor renal status, HD? -> K wnl, monitor need for Renal diet 2) Obtain a calibrated bed scale wt for eval 3) Add Nepro 1 tetra w/ meals w/ current variable po intake
--- NOTE | 2020-05-17 13:20 | NUR ---
NURSE NOTES: RN received order from Dr. Robertson to get the consent for dialysis and tunneled cath placement for dialysis. RN spoke to Lindsay Russo patient's POA and explained about HD and catheter placement. POA consented and fully understood about procedure and she will fax the POA paper to [facility]. When RN asked to POA if she needs to talk to the doctor regarding dialysis, she said no since she understood what dialysis is. Will follow up.
--- NOTE | 2020-05-17 13:24 | NUR ---
DISCHARGE PLANNING S/W NIMA AT [facility] [phone]. STATED NO CM YET ASSIGNED. REQUESTED STABLE FOR TRANSFER ORDER. DR KENT INFORMED AND GAVE TO/RB FOR STABLE TO TRANSFER TO [place]. NOTED AND CARRIED OUT. ORDER FAXED TO; [facility] F: [phone]
--- NOTE | 2020-05-17 13:58 | NUR ---
CASE MANAGEMENT:REVIEW SI;UPPER GI BLEED. ENCEPHALOPATHY. RENAL FAILURE~NEEDS HD. COVID-19 POSITIVE. 98.1 90 18 121/72 95% ON RA H/H 8.6/26.6 BUN 108 CR 8.0 CA 6.7 IS;Na BICARB/NSS @ 175 ML/HR CEFEPIME IV PROTONIX IV PROSCAR PO FLOMAX PO MED SURG STATUS DCP;PATIENT IS FROM [facility]; TRANSFER TO [facility] DUE TO INSURANCE WHEN STABLE START HEMODIALYSIS
--- NOTE | 2020-05-17 14:00 | NUR ---
NURSE NOTES: RN received call from .Per ,patient is going to be discharged to [facility] when the bed is ready. Rn paged Dr. Robertson to inform. Awaiting for return call.
--- NOTE | 2020-05-17 14:26 | NUR ---
DISCHARGE PLANNING NOTE FOLLOW UP CALL MADE TO GRIFFITH @[phone]. S/W ABELINO WHO INFORMED THAT A CM HAS NOT YET BEEN ASSIGNED. INFORMED THAT A CM WILL BE ASSIGNED UPON RECEIPT OF FAXED ORDER FOR TRANSFER.
--- NOTE | 2020-05-17 15:05 | NUR ---
NURSE NOTES: Spoke to Dr. wong and made him aware that patient is going to be transferred out to [place].
[2020-05-17 16:00] VITALS: BP 141/81
--- NOTE | 2020-05-17 17:19 | NUR ---
DISCHARGE PLANNING FOLLOW UP CALL MADE TO [facility] [phone] S/W DONOVAN. JING ORDER FOR TRANSFER NOT YET RECEIVED BY [facility] @ [phone]. PER DONOVAN, FAXES ARE BEING RECEIVED SLOWER THAN USUAL. CM WILL BE ASSIGNED UPON RECEIPT OF ORDER FOR TRANSFER. NURSES STATION NUMBER PROVIDED [phone]. [facility] WILL FOLLOW UP WITH NURSES STATION IF THEY PLAN TO TRANSFER PATIENT.
--- NOTE | 2020-05-17 17:27 | NUR ---
NURSE NOTES: Received call from regarding transfer. [facility] will work on transfer once order is received. Fax is being sent slower than usual per [facility].Fax was sent by . Per , [facility] will call [facility] nursing station once bed is ready. Will endorse to next shift if no calls from [facility].
--- NOTE | 2020-05-17 18:43 | NUR ---
NURSE NOTES: Patient remains kept clean and dry. Skin is intact. No pressure sore noted. Still waiting for [place] to call [facility] for transfer.
--- NOTE | 2020-05-17 19:10 | NUR ---
NURSES NOTES;Received report from Ford RN, patient in bed,awake, alert and verbally responsive. Not in acute respiratory/cardiac distress. Breathing is even and unlabored. Denies SOB or pain @ this time.No coughing.Bed is in lowest position and locked. Call light within reach. Reminded patient to use call light if needed. Observed isolation @ all times. Will continue plan of care.
--- NOTE | 2020-05-17 19:10 | NUR ---
NURSE NOTES: No calls from [place].
--- NOTE | 2020-05-17 19:15 | NUR ---
HAND-OFF: Report given to Al and endorsed plan of care and to follow up with [facility] for transfer.
[2020-05-17] MEDS ORDERED: PROTONIX IV40 MG IV (19:19)
--- NOTE | 2020-05-17 19:20 | NUR ---
NURSE NOTES: RN spoke to Dr. Fatima. Dr. Fatima wants to continue hospital meds upon discharge.
[2020-05-17] MEDS ORDERED: CEFEPIME-D1 GM/50 ML IVPB (19:21)
[2020-05-17 20:00] VITALS: BP 142/74
--- NOTE | 2020-05-17 20:46 | General Progress Note ---
Assessment/Plan Assessment/Plan: Assessment - Coffee ground emesis - resolved - Anemia - drop in H&H likely dilutional - UTI - Renal failure- improved Cr - acidosis - OBS - Recent COVID (+) Recommendations - Hydration - push po diet - PPI - Abx - monitor CBC - await transfer Subjective Allergies: Coded Allergies: NSAIDS (NON-STEROIDAL ANTI-INFLAMMA (Verified Allergy, Unknown, 05/14/20) Subjective Above noted Transfer plans noted no events overnight d/w RN Objective Last 24 Hour Vital Signs Date Time Temp Pulse Resp B/P (MAP) Pulse Ox O2 Delivery O2 Flow Rate FiO2 05/17/20 16:00 97.2 97 18 141/81 (101) 95 05/17/20 12:00 97.5 80 18 119/69 (86) 95 05/17/20 09:00 Room Air 05/17/20 08:00 97.8 85 18 121/72 (88) 95 05/17/20 04:47 97.6 90 15 116/66 (83) 95 05/17/20 00:30 98.1 86 16 109/70 (83) 95 05/16/20 21:27 Room Air Intake and Output 05/16/20 05/17/20 19:00 07:00 Intake Total 2007 ml 360 ml Balance 2007 ml 360 ml Intake Oral 360 ml 360 ml IV Total 1648 ml # Voids 2 # Bowel Movements 1 Laboratory Tests 05/17/20 08:05: White Blood Count 8.3, Red Blood Count 2.95L, Hemoglobin 8.6L, Hematocrit 26.6L , Mean Corpuscular Volume 90, Mean Corpuscular Hemoglobin 29.2, Mean Corpuscular Hemoglobin Concent 32.4, Red Cell Distribution Width 15.6H, Platelet Count 365, Mean Platelet Volume 4.7L, Neutrophils (%) (Auto) , Lymphocytes (%) (Auto) , Monocytes (%) (Auto) , Eosinophils (%) (Auto) , Basophils (%) (Auto) , Differential Total Cells Counted 100, Neutrophils % ( Manual) 85H, Lymphocytes % (Manual) 9L, Monocytes % (Manual) 4, Eosinophils % ( Manual) 2, Basophils % (Manual) 0, Band Neutrophils 0, Platelet Estimate Adequate, Platelet Morphology Normal, Hypochromasia 1+, Anisocytosis 1+, Ovalocytes Occasional, Sodium Level 138, Potassium Level 3.7, Chloride Level 100 , Carbon Dioxide Level 20L, Anion Gap 19H, Blood Urea Nitrogen 108H, Creatinine 8.0H, Estimat Glomerular Filtration Rate 6.5, Glucose Level 99, Calcium Level 6.7L Height (Feet): 5 Height (Inches): 5.00 Weight (Pounds): 130 Objective Vital signs noted exam deferred due to COVID (+) Wolfgang Lopez MD May 17, 2020 20:46
[2020-05-18] VITALS (7 sets, daily range): BP systolic 128–165; BP diastolic 72–91
[2020-05-18] MEDS ORDERED: Heparin 1000 units/ml 1ml Vial INJ PRN (06:00)
[2020-05-18] MEDS ORDERED: Heparin Sod 1000 units/ml 10ml IV PRN (06:00)
[2020-05-18] MEDS: NovoLOG Insulin Flexpen SUBQ SCH ×4 (06:06→20:59)
[2020-05-18 06:57] LABS: ANION GAP 20 mmol/L (5-15); BLOOD UREA NITROGEN 97 mg/dL (7-18); CALCIUM 6.8 MG/DL (8.5-10.1); CARBON DIOXIDE 19 MMOL/L (21-32); CHLORIDE 99 MMOL/L (98-107); CREATININE 7.6 MG/DL (0.55-1.30); SODIUM 137 MMOL/L (136-145)
--- NOTE | 2020-05-18 07:35 | NUR ---
HAND-OFF: Report given to Vel VALERO.
--- NOTE | 2020-05-18 07:45 | NUR ---
NURSE NOTES: Pt is in the bed alert and awake. respiration is even and unlabored. denies any pain and discomfort. no coughing episodes noted; HOB elevated. call light is within reach, will follow plan of care.
[2020-05-18] MEDS: Multivitamin w/Minerals tab ORAL SCH (09:10)
[2020-05-18] MEDS: Ascorbic Acid 500mg tab ORAL SCH (09:10)
[2020-05-18] MEDS: Sennosides 8.6mg tab ORAL SCH (09:11)
[2020-05-18] MEDS: Pantoprazole Inj IVP SCH ×2 (09:11→20:19)
[2020-05-18] MEDS: Cefepime HCl 1 GM in D5W 55 ML IVPB SCH (09:11)
[2020-05-18] MEDS: Tamsulosin 0.4mg cap ORAL SCH (09:11)
--- NOTE | 2020-05-18 09:46 | NUR ---
CASE MANAGEMENT:REVIEW SI;COVID-19 VIRAL POSITIVE. UPPER GI BLEED. ENCEPHALOPATHY. RENAL FAILURE REQUIRING HD. 97.3 97 24 147/94 94% ON RA BUN 97 CR 7.6 ANION GAP 20 CA 6.8 IS;IVF NS BOLUS NA BICARB/NSS PROTONIX IV CEFEPIME IV PROSCAR PO FLOMAX PO MED SURG STATUS DCP;PATIENT IS FROM [facility]; TRANSFER TO [facility] DUE TO INSURANCE START HEMODIALYSIS
--- NOTE | 2020-05-18 10:01 | NUR ---
INSURANCE CALL MADE TO GLADIS ANGUIANO @ [phone]. S/W SYLWIA WHO REQUESTED CLINICALS FOR TODAY BE FAXED FOR REVIEW. CLINICALS FAXED TO: [phone]
--- NOTE | 2020-05-18 10:22 | NUR ---
*-* INSURANCE *-* ALL AVAILABLE CLINICALS AND REVIEWS WERE FAXED BY DAISY GRIFFITH SR AUTH#[id number] P:[phone] F: [phone]
--- NOTE | 2020-05-18 12:31 | NUR ---
DISCHARGE PLANNING FOLLOW UP CALL MADE TO [facility] IN RE TO TRANSFER. PER SYLWIA AT [facility], THIS PATIENT HAS NOT YET BEEN ASSIGNED TO A CM. STATES HE HAS REQUESTED THE CASE BE ESCALATED AND HAS REQUESTED A SEASONER HAND ASSIGN PATIENT TO A CM CARO[facility]. VERBAL REPORT GIVEN AND INFORMED SYLWIA THAT PATIENT IS REQUIRING HD AND TUNNEL CATH PLACEMENT HAS BEEN HELD DUE TO PENDING TRANSFER TO [facility].
--- NOTE | 2020-05-18 13:56 | Nephrology Progress Note ---
Assessment/Plan Plan Acute Nonoliguric Renal Failure. Needs HD. DW Pt's DPOA. Consent obtained. HD was not done yesterday and so was not Stuart placed!! Needs HD CAROLE. DW CM + HD RN. Subjective Subjective Confused Objective Objective Last 24 Hour Vital Signs Date Time Temp Pulse Resp B/P (MAP) Pulse Ox O2 Delivery O2 Flow Rate FiO2 05/18/20 12:00 97.5 101 20 141/91 (108) 95 05/18/20 09:00 Room Air 05/18/20 08:00 96.6 93 20 147/91 (109) 97 05/18/20 04:00 97.2 89 20 128/72 (90) 96 05/18/20 00:00 97.0 89 22 136/77 (96) 94 05/17/20 21:00 Room Air 05/17/20 20:00 97.3 97 24 142/74 (96) 94 05/17/20 16:00 97.2 97 18 141/81 (101) 95 Intake and Output 05/17/20 05/18/20 19:00 07:00 Intake Total 1880 ml 2175 ml Output Total 400 ml 600 ml Balance 1480 ml 1575 ml Intake Oral 480 ml 250 ml IV Total 1400 ml 1925 ml Output Urine Total 400 ml 600 ml # Voids 1 1 # Bowel Movements 4 2 Laboratory Tests 05/17/20 17:19: POC Whole Blood Glucose 99 05/18/20 05:52: POC Whole Blood Glucose 67L 05/18/20 06:30: Sodium Level 137, Potassium Level 4.0, Chloride Level 99, Carbon Dioxide Level 19L, Anion Gap 20H, Blood Urea Nitrogen 97H, Creatinine 7.6H, Estimat Glomerular Filtration Rate 6.9, Glucose Level 65L, Calcium Level 6.8L Height (Feet): 5 Height (Inches): 5.00 Weight (Pounds): 169 Objective Pale. Confused. CV RR Lungs CTA Abd SNT. BS + E No CCE Linda Robertson MD May 18, 2020 13:56
--- NOTE | 2020-05-18 15:31 | NUR ---
CASE MANAGEMENT: NOTE DAISY CALLED [facility] REGARDING TRANSFER CM SPOKE WITH [facility] ACCORDING TO [facility] NOTES PATIENT IS TRANSFERABLE [facility] TRYING TO ASSIGN CASE TO FOR REVIEW AT THIS TIME NO [facility] CM ASSIGNED [facility] SR AUTH#[id number] P:[phone]
--- NOTE | 2020-05-18 15:38 | Consultation ---
History of Present Illness General Date patient seen: May 18, 2020 Reason for Hospitalization: Gastrointestinal Bleed Present Illness HPI 80-year-old male presents to [facility] for evaluation of nausea and emesis. Patient presents from [facility] facility with coffee-ground emesis since day before admission. Admitted further care and management. Noted to have worsening renal insufficiency no signs of distress. No reported fevers or chills. Patient is DNR. No reported chest pain or shortness of breath. Patient tested positive for COVID 3 weeks ago. No reported cough. No other aggravating relieving factors. No other associated symptoms evaluation for GI bleed abnormal labs therefore surgery called to evaluate and assist with care patient seen, patient evaluated, chart reviewed. Patient plan for hemodialysis need access. Allergies: Coded Allergies: NSAIDS (NON-STEROIDAL ANTI-INFLAMMA (Verified Allergy, Unknown, 05/14/20) COVID-19 Screening Contact w/high risk pt: No Recent Travel to affected area: No Experienced COVID-19 symptoms?: No Medication History Scheduled Ascorbic Acid* (Ascorbic Acid*), 500 MG ORAL DAILY, (Reported) Cefepime Hcl/D5w (Cefepime-Dextrose 1 Gm/50 Ml), 1 GM IVPB Q24H, (Reported) Cholecalciferol (Vitamin D3) (Vitamin D3), 125 MCG PO DAILY, (Reported) Dextrose (Glucose Gel), 12 GM PO DAILY, (Reported) Dextrose/Dextrin/Maltose (Insta-Glucose Gel), 12 GM PO DAILY, (Reported) Finasteride (Finasteride), 5 MG ORAL DAILY, (Reported) Multivitamin With Minerals (Multivitamins With Minerals*), 1 TAB ORAL DAILY, ( Reported) Nifedipine (Nifedipine*), 30 MG ORAL TWICE A DAY, (Reported) Omeprazole Magnesium (Prilosec Otc), 20 MG ORAL DAILY, (Reported) Pantoprazole* (Protonix*), 40 MG IV DAILY, (Reported) Sennosides* (Sen-O-Tab*), 8.6 MG ORAL DAILY, (Reported) Tamsulosin HCl (Flomax), 0.8 MG ORAL DAILY, (Reported) Scheduled PRN Acetaminophen* (Acetaminophen 325MG Tablet*), 650 MG ORAL Q6H PRN for For Pain, (Reported) Miscellaneous Medications Insulin Regular, Human (Humulin R), 0 SUBQ, (Reported) Patient History Limited by: medical condition History Provided By: Medical Record, PMD Healthcare decision maker URSULA ETIENNE Resuscitation status Advanced Directive on File Past Medical/Surgical History Past Medical/Surgical History: (1) Renal failure (2) UTI (urinary tract infection) (3) Pneumonia (4) Dehydration (5) Metabolic acidosis (6) MAHAD (acute kidney injury) (7) UGIB (upper gastrointestinal bleed) Review of Systems Review of Symptoms General ROS: no weight loss or fever Psychological ROS: no depression or mood changes, no memory loss Ophthalmic ROS: no visual changes or eye irritation ENT ROS: no nasal congestion, hearing loss, dizziness Allergy and Immunology ROS: no allergic symptoms or urticaria Hematological and Lymphatic ROS: no swollen glands, unusual bleeding or bruising Endocrine ROS: no polyuria, polydipsia, weight changes, temperature intolerance Respiratory ROS: no cough, shortness of breath, or wheezing Cardiovascular ROS: no chest pain or dyspnea on exertion Gastrointestinal ROS: denies abdominal pain, bright red blood in stool. Musculoskeletal ROS: no myalgias or arthralgias Neurological ROS: no TIA or stroke symptoms Dermatological ROS: no new or changing skin lesions, rashes or pruritis Physical Exam Physical Exam General appearance: alert, cooperative, no distress, appears stated age Head: Normocephalic, without obvious abnormality, atraumatic Eyes: conjunctivae/corneas clear. PERRL, EOM's intact. Fundi benign Throat: Lips, mucosa, and tongue normal. Teeth and gums normal Neck: supple, symmetrical, trachea midline, no adenopathy, thyroid: not enlarged, symmetric, no tenderness/mass/nodules, no carotid bruit and no JVD Lungs: clear to auscultation bilaterally Heart: regular rate and rhythm, S1, S2 normal, no murmur, click, rub or gallop Abdomen: soft, non-tender. Bowel sounds normal. No masses, no organomegaly Extremities: extremities normal, atraumatic, no cyanosis or edema Pulses: 2+ and symmetric Skin: Skin color, texture, turgor normal. No rashes or lesions Neurologic: Grossly normal Last 24 Hour Vital Signs Date Time Temp Pulse Resp B/P (MAP) Pulse Ox O2 Delivery O2 Flow Rate FiO2 05/18/20 12:00 97.5 101 20 141/91 (108) 95 7/8/20 09:00 Room Air 05/18/20 08:00 96.6 93 20 147/91 (109) 97 05/18/20 04:00 97.2 89 20 128/72 (90) 96 05/18/20 00:00 97.0 89 22 136/77 (96) 94 05/17/20 21:00 Room Air 05/17/20 20:00 97.3 97 24 142/74 (96) 94 05/17/20 16:00 97.2 97 18 141/81 (101) 95 Intake and Output 05/17/20 05/18/20 19:00 07:00 Intake Total 1880 ml 2175 ml Output Total 400 ml 600 ml Balance 1480 ml 1575 ml Intake Oral 480 ml 250 ml IV Total 1400 ml 1925 ml Output Urine Total 400 ml 600 ml # Voids 1 1 # Bowel Movements 4 2 Laboratory Tests Test 05/17/20 17:19 05/18/20 05:52 05/18/20 06:30 POC Whole Blood Glucose 99 MG/DL (74-106) 67 MG/DL (74-106) L Sodium Level 137 MMOL/L (136-145) Potassium Level 4.0 MMOL/L (3.5-5.1) Chloride Level 99 MMOL/L (98-107) Carbon Dioxide Level 19 MMOL/L (21-32) L Anion Gap 20 mmol/L (5-15) H Blood Urea Nitrogen 97 mg/dL (7-18) H Creatinine 7.6 MG/DL (0.55-1.30) H Estimat Glomerular Filtration Rate 6.9 mL/min (>60) Glucose Level 65 MG/DL (74-106) L Calcium Level 6.8 MG/DL (8.5-10.1) L Hepatitis B Surface Antigen Pending Height (Feet): 5 Height (Inches): 5.00 Weight (Pounds): 169 Medications Current Medications Medications (Trade) Dose Ordered Sig/Bina Route PRN Reason Start Time Stop Time Status Last Admin Dose Admin Acetaminophen (Tylenol) 650 mg Q4H PRN ORAL Mild Pain (Pain Scale 1-3) 05/14/20 12:45 06/13/20 12:44 Al Hydroxide/Mg Hydroxide (Mylanta) 30 ml Q4H PRN ORAL upset stomach 05/14/20 12:45 06/13/20 12:44 Ascorbic Acid (Vitamin C) 500 mg DAILY ORAL 05/15/20 09:00 06/14/20 08:59 05/18/20 09:10 Cefepime HCl 1 gm/ Dextrose 55 ml @ 110 mls/hr Q24H IVPB 05/15/20 09:00 05/22/20 08:59 05/18/20 09:11 Dextrose (Dextrose 50%) 25 ml Q30M PRN IV Hypoglycemia 05/14/20 13:30 08/12/20 13:29 Dextrose (Dextrose 50%) 50 ml Q30M PRN IV Hypoglycemia 05/14/20 13:30 08/12/20 13:29 Finasteride (Proscar) 5 mg DAILY ORAL 05/15/20 09:00 08/13/20 08:59 05/18/20 09:11 Heparin Sodium (Porcine) (Heparin Sod 1000 units/ml 10ml) 500 unit ONCE PRN IV HD 05/19/20 06:00 05/19/20 23:59 Heparin Sodium (Porcine) (Heparin Sod 1000 units/ml 10ml) 2,000 unit ONCE PRN IV hd 05/18/20 06:00 05/18/20 23:59 Heparin Sodium (Porcine) (Heparin Sod 1000 units/ml 10ml) 2,000 unit ONCE PRN IV HD 05/19/20 06:00 05/19/20 23:59 Heparin Sodium (Porcine) (Heparin) 1,000 unit POSTHD PRN INJ POST HD 05/18/20 06:00 05/18/20 23:59 Heparin Sodium (Porcine) (Heparin) 1,000 unit POSTHD PRN INJ POST HD 05/19/20 06:00 05/19/20 23:59 Insulin Aspart (NovoLOG) BEFORE MEALS AND HS SUBQ 05/14/20 16:30 08/12/20 16:29 Multivitamins Therapeutic (Therapeutic Multivitamin) 1 ea DAILY ORAL 05/15/20 09:00 06/14/20 08:59 05/18/20 09:10 Pantoprazole (Protonix) 40 mg EVERY 12 HOURS IVP 05/14/20 21:00 06/13/20 20:59 05/18/20 09:11 Sennosides (Senokot) 8.6 mg DAILY ORAL 05/15/20 09:00 06/14/20 08:59 05/18/20 09:11 Sodium Bicarbonate 50 ml/ Sodium Chloride 1,050 ml @ 175 mls/hr Q6H IV 05/16/20 13:30 06/15/20 13:29 05/18/20 13:51 Sodium Chloride 1,000 ml @ 500 mls/hr Q2H PRN IVLG sbp<90 during hd 05/18/20 06:00 05/18/20 23:59 Sodium Chloride 1,000 ml @ 500 mls/hr Q2H PRN IVLG sbp<90 during hd 05/19/20 06:00 05/19/20 23:59 Tamsulosin HCl (Flomax) 0.8 mg DAILY ORAL 05/15/20 09:00 06/14/20 08:59 05/18/20 09:11 Assessment/Plan Problem List: (1) Dehydration ICD Codes: E86.0 - Dehydration SNOMED: 76921567 (2) Metabolic acidosis ICD Codes: E87.2 - Acidosis SNOMED: 02991282 (3) MAHAD (acute kidney injury) ICD Codes: N17.9 - Acute kidney failure, unspecified SNOMED: 3236297, 33881569 (4) UGIB (upper gastrointestinal bleed) Assessment & Plan: Upper GI bleed coffee-ground emesis prior to admission hemoglobin drop on admission but currently has been stable. No active bleeding identified. Nausea and emesis have resolved. GI input appreciated. Considerations of scope at some time. Currently stable. No acute surgical intervention planned at this time We will follow with recommendations Trend H&H Okay for diet ICD Codes: K92.2 - Gastrointestinal hemorrhage, unspecified SNOMED: 64841394 (5) Renal failure Assessment & Plan: Patient with renal insufficiency worsening renal function creatinine currently elevated and abnormal labs. Patient needs hemodialysis per nephrology does not have access at this time. Needs access urgently. We will plan for temporary Stuart catheter placement right away see note thank you procedure We will follow the recommendations ICD Codes: N19 - Unspecified kidney failure SNOMED: 47677525 Qualifiers: Qualified Codes: N19 - Unspecified kidney failure (6) UTI (urinary tract infection) ICD Codes: N39.0 - Urinary tract infection, site not specified SNOMED: 94726610 Qualifiers: Qualified Codes: N39.0 - Urinary tract infection, site not specified (7) Pneumonia ICD Codes: J18.9 - Pneumonia, unspecified organism SNOMED: 876637348 Qualifiers: Qualified Codes: J15.211 - Pneumonia due to methicillin susceptible Staphylococcus aureus Jere Da Silva May 18, 2020 15:38
--- NOTE | 2020-05-18 15:40 | NUR ---
krystaln is waiting fro reedley insert from [id number] to [id number]
--- NOTE | 2020-05-18 15:50 | NUR ---
RECORDS CUSTODIAN NOTES SPOKE WITH PHANI FROM [facility],MADE AWARE OF PATIENT NEEDING TO TRANSFER INTO NETWORK ALSO AWARE OF PT NEEDING DIALYSIS. PER PHANI SHE WILL HAVE SOMEONE CALL ME BACK. PROVIDED PHANI WITH MY DIRECT LINE. AWAITING CALL BACK.
[2020-05-18] MEDS ORDERED: Heparin1,000 units/500ml Premix(Conc:2 units/ml) IV PRN (16:15)
[2020-05-18] MEDS ORDERED: Lidocaine 1% Plain 30 ml INJ PRN (16:15)
--- NOTE | 2020-05-18 17:18 | Pre-Procedure Note/Attestation ---
Pre-Procedure Note/Attestation Complete Prior to Procedure Planned Procedure: not applicable Procedure Narrative: Temporary dialysis catheter Indications for Procedure Pre-Operative Diagnosis: renal failure Attestation I attest that I discussed the nature of the procedure; its benefits; risks and complications; and alternatives (and the risks and benefits of such alternatives ), prior to the procedure, with the patient (or the patient's legal jewelry sales representative). I attest that, if there was a reasonable possibility of needing a blood transfusion, the patient (or the patient's legal jewelry sales representative) was given the [facility] standardized written summary, pursuant to the Sean Evangelina Blood Safety Act ([place] Health and Safety Code # 1645, as amended). I attest that I re-evaluated the patient just prior to the surgery and that there has been no change in the patient's H&P, except as documented below: Discussed by phone with pt's. POA at 1630 Jama Aguilar MD May 18, 2020 17:18
--- NOTE | 2020-05-18 17:19 | Brief Operative Note ---
Immediate Post Operative Note Operative Note Pre-op Diagnosis: renal failure Procedure: R IJV temporary dialysis catheter Post-op Diagnosis: same as pre-op Surgeon: Claudia Reyes Anesthesia: local Specimen: none Complications: none Fluids: none Implant(s) used?: No aJma Reyes MD May 18, 2020 17:19
--- NOTE | 2020-05-18 17:21 | NUR ---
RADIOLOGY NOTE: RIJ DIALYSIS CATHETER NON TUNNELED PLACED BY DR. MARYANNE BRIONES AT 1650 HRS. FA
--- NOTE | 2020-05-18 17:25 | Diagnostic Imaging Report ---
Indication: Renal failure Technique: Procedure performed at bedside. Procedural timeout performed. Total sterile technique, including sterile probe cover and sterile gel, sterile gloves, hand hygiene, hat, mask, sterile gown, large sterile drape, and preparation with 2% chlorhexidine utilized. Local anesthesia with 1% lidocaine. Under real-time ultrasound guidance, puncture right internal jugular vein using 21-gauge micropuncture needle, insertion 0.018 guidewire, insertion 4 Latvian micropuncture introducer, passage 0.035 guidewire, over which was passed serial dilators and then a 13 Latvian 15 cm triple-lumen temporary dialysis catheter. Guidewire was removed. Catheter ports were aspirated and flushed. The catheter was fixed to the skin. Patient tolerated procedure well. A chest x-ray was obtained, documents catheter tip position at the high right atrium. Comparison: none Findings: As above Impression: Successful bedside placement of right transjugular temporary dialysis catheter, as described.
--- NOTE | 2020-05-18 18:27 | General Progress Note ---
Assessment/Plan Assessment/Plan: IMPRESSION GIB coffee ground emesis anemia acute on CKD chronic encephalopathy PCM severe dementia UTI COVID+ PLAN IV hydration HD gilbert IV antibiotics gi follow up and clearance renal follow up and monitor renal function closely DNR dc once HD in place impression, plan, and exam edited and reviewed in detail care discussed with RN Subjective ROS Limited/Unobtainable: Yes Allergies: Coded Allergies: NSAIDS (NON-STEROIDAL ANTI-INFLAMMA (Verified Allergy, Unknown, 05/14/20) Subjective gi noted COVID+ for HD labs reviewed Objective Last 24 Hour Vital Signs Date Time Temp Pulse Resp B/P (MAP) Pulse Ox O2 Delivery O2 Flow Rate FiO2 05/18/20 16:00 98.1 91 20 145/86 (105) 97 05/18/20 12:00 97.5 101 20 141/91 (108) 95 05/18/20 09:00 Room Air 05/18/20 08:00 96.6 93 20 147/91 (109) 97 05/18/20 04:00 97.2 89 20 128/72 (90) 96 05/18/20 00:00 97.0 89 22 136/77 (96) 94 05/17/20 21:00 Room Air 05/17/20 20:00 97.3 97 24 142/74 (96) 94 Intake and Output 05/17/20 05/18/20 19:00 07:00 Intake Total 1880 ml 2175 ml Output Total 400 ml 600 ml Balance 1480 ml 1575 ml Intake Oral 480 ml 250 ml IV Total 1400 ml 1925 ml Output Urine Total 400 ml 600 ml # Voids 1 1 # Bowel Movements 4 2 Laboratory Tests 05/18/20 05:52: POC Whole Blood Glucose 67L 05/18/20 06:30: Sodium Level 137, Potassium Level 4.0, Chloride Level 99, Carbon Dioxide Level 19L, Anion Gap 20H, Blood Urea Nitrogen 97H, Creatinine 7.6H, Estimat Glomerular Filtration Rate 6.9, Glucose Level 65L, Calcium Level 6.8L, Hepatitis B Surface Antigen [Pending] Height (Feet): 5 Height (Inches): 5.00 Weight (Pounds): 169 Objective deferred due to possible COVID Ross Fatima MD May 18, 2020 18:27
--- NOTE | 2020-05-18 18:42 | Diagnostic Imaging Report ---
EXAM: US Retroperitoneal Limited, Renal CLINICAL HISTORY: ABN LABS TECHNIQUE: Real-time limited ultrasound of the retroperitoneum with image documentation. COMPARISON: None. FINDINGS: Right kidney: Right kidney measures 10.2 cm. Moderate to severe right hydronephrosis. No stones. Left kidney: Left kidney is not visualized due to body habitus. Bladder: Findings suggestive debris within the dependent portion of the bladder of uncertain etiology. IMPRESSION: 1. Markedly limited study of the left kidney is not visualized. 2. Moderate to severe right hydronephrosis of uncertain etiology. 3. Debris within the bladder of uncertain etiology. 4. Further workup is advised.
--- NOTE | 2020-05-18 19:45 | General Progress Note ---
Assessment/Plan Assessment/Plan: Assessment - Coffee ground emesis - resolved - periodic N/V - likely due to GI tract COVID involvement - Anemia - drop in H&H likely dilutional - UTI - Renal failure- improved Cr - acidosis - OBS - COVID (+) Recommendations - Hydration - push po diet - PPI - Abx - monitor CBC - await transfer Subjective Allergies: Coded Allergies: NSAIDS (NON-STEROIDAL ANTI-INFLAMMA (Verified Allergy, Unknown, 05/14/20) Subjective Above noted Transfer plans noted no events overnight d/w RN appetite variable N/V x 1 Objective Last 24 Hour Vital Signs Date Time Temp Pulse Resp B/P (MAP) Pulse Ox O2 Delivery O2 Flow Rate FiO2 05/18/20 16:00 98.1 91 20 145/86 (105) 97 05/18/20 12:00 97.5 101 20 141/91 (108) 95 05/18/20 09:00 Room Air 05/18/20 08:00 96.6 93 20 147/91 (109) 97 05/18/20 04:00 97.2 89 20 128/72 (90) 96 05/18/20 00:00 97.0 89 22 136/77 (96) 94 05/17/20 21:00 Room Air 05/17/20 20:00 97.3 97 24 142/74 (96) 94 Intake and Output 05/17/20 05/18/20 19:00 07:00 Intake Total 1880 ml 2175 ml Output Total 400 ml 600 ml Balance 1480 ml 1575 ml Intake Oral 480 ml 250 ml IV Total 1400 ml 1925 ml Output Urine Total 400 ml 600 ml # Voids 1 1 # Bowel Movements 4 2 Laboratory Tests 05/18/20 05:52: POC Whole Blood Glucose 67L 05/18/20 06:30: Sodium Level 137, Potassium Level 4.0, Chloride Level 99, Carbon Dioxide Level 19L, Anion Gap 20H, Blood Urea Nitrogen 97H, Creatinine 7.6H, Estimat Glomerular Filtration Rate 6.9, Glucose Level 65L, Calcium Level 6.8L, Hepatitis B Surface Antigen [Pending] Height (Feet): 5 Height (Inches): 5.00 Weight (Pounds): 169 Objective Vital signs noted exam deferred due to COVID (+) Wolfgang Lopez MD May 18, 2020 19:45
--- NOTE | 2020-05-18 19:46 | NUR ---
HAND-OFF: Report given to Sandie.
--- NOTE | 2020-05-18 20:00 | NUR ---
NURSE NOTES: Received patient awake, non-verbal, no SOB noted, resting in bed, comfortable.
--- NOTE | 2020-05-18 21:30 | NUR ---
NURSE NOTES: Blood sugar at 2100 is 63, refused orange juice, gave 25 ml of D50 and informed Dr Fatima per [facility] protocol. Patient is asymptomatic. Repeat blood sugar at 2100 is 88. Hemodialysis started.
[2020-05-19 00:41] VITALS: BP 123/73
[2020-05-19 04:00] VITALS: BP 146/75
[2020-05-19] MEDS ORDERED: Heparin Sod 1000 units/ml 10ml IV PRN ×2 (06:00)
[2020-05-19] MEDS ORDERED: Heparin 1000 units/ml 1ml Vial INJ PRN (06:00)
[2020-05-19] MEDS: NovoLOG Insulin Flexpen SUBQ SCH ×4 (06:10→21:00)
--- NOTE | 2020-05-19 07:03 | NUR ---
HAND-OFF: Report given to Andrea Cook RN.
--- NOTE | 2020-05-19 07:20 | NUR ---
NURSE NOTES: Received report from MARYLU Hurst. Pt received lying in hospital bed, AAO x1 nonverbal, unable to make needs known, requires mod-max assistance with ADLs, able to feel himself, on bedrest. Pt is on RA with no s/s of respiratory distress noted at this time. LBM on 05/17/20. Incontinent x 2. Skin intact with pIV on LFA with no s/s of infection or infiltration running IV fluid with Sodium Bicarb at 175 ml/hr as ordered. Pt is pending transfer to [facility]. Will continue POC.
[2020-05-19 08:32] VITALS: BP 147/86
--- NOTE | 2020-05-19 08:46 | General Progress Note ---
Assessment/Plan Assessment/Plan: IMPRESSION GIB coffee ground emesis anemia acute on CKD chronic encephalopathy PCM severe dementia UTI COVID+ PLAN IV hydration HD gilbert IV antibiotics gi follow up and clearance renal follow up and monitor renal function closely DNR dc once HD in place impression, plan, and exam edited and reviewed in detail care discussed with RN Subjective Allergies: Coded Allergies: NSAIDS (NON-STEROIDAL ANTI-INFLAMMA (Verified Allergy, Unknown, 05/14/20) Subjective gi noted COVID+ for HD labs reviewed Objective Last 24 Hour Vital Signs Date Time Temp Pulse Resp B/P (MAP) Pulse Ox O2 Delivery O2 Flow Rate FiO2 05/19/20 08:32 98.9 86 19 147/86 (106) 97 05/19/20 04:00 98.5 95 20 146/75 (98) 95 05/19/20 00:41 81 123/73 (90) 05/18/20 23:52 98.0 94 18 165/78 (107) 95 05/18/20 21:29 Room Air 05/18/20 20:00 98.0 89 18 143/86 (105) 96 05/18/20 16:00 98.1 91 20 145/86 (105) 97 05/18/20 12:00 97.5 101 20 141/91 (108) 95 05/18/20 09:00 Room Air Intake and Output 05/18/20 05/19/20 19:00 07:00 Intake Total 240 ml 1750 ml Output Total 400 ml 2000 ml Balance -160 ml -250 ml Intake Oral 240 ml IV Total 1750 ml Output Urine Total 400 ml Hemodialysis UF 2000 ml # Voids 1 # Bowel Movements 3 2 Laboratory Tests 05/18/20 18:13: POC Whole Blood Glucose [Pending] 05/18/20 20:40: POC Whole Blood Glucose 63L Height (Feet): 5 Height (Inches): 5.00 Weight (Pounds): 169 Objective deferred due to possible COVID Ross Fatima MD May 19, 2020 08:46
--- NOTE | 2020-05-19 08:59 | NUR ---
NURSE NOTES: Pt reports urinating 40 times per day and drinking a lot of water per day. Per pt, he has been defecating small soft stools at least 20 times per day for the last 10 days. notified. Received order for [facility] stool specimen collection. Order read back and verified. Will carry out. Addendum: 05/19/20 at 0901 by Andrea Cook RN Please disregard this note. Entered in error.
[2020-05-19] MEDS: Pantoprazole Inj IVP SCH ×2 (09:14→21:10)
[2020-05-19] MEDS: Cefepime HCl 1 GM in D5W 55 ML IVPB SCH (09:15)
[2020-05-19] MEDS: Tamsulosin 0.4mg cap ORAL SCH (09:15)
[2020-05-19] MEDS: Sennosides 8.6mg tab ORAL SCH (09:15)
[2020-05-19] MEDS: Multivitamin w/Minerals tab ORAL SCH (09:15)
[2020-05-19] MEDS: Ascorbic Acid 500mg tab ORAL SCH (09:15)
--- NOTE | 2020-05-19 10:12 | NUR ---
NURSE NOTES: Pt had a large emesis of his breakfast and AM medications. Noted patient with extensive swelling of scrotal area. Dr. Lopez and Dr. Fatima made aware. Awaiting responses. Will continue to f/u.
--- NOTE | 2020-05-19 11:03 | NUR ---
NURSE NOTES: Received new orders for patient's diet and IV reglan. Read back and verified. Will carry out.
--- NOTE | 2020-05-19 11:31 | Nephrology Progress Note ---
Assessment/Plan Plan Acute Nonoliguric Renal Failure. HD started. On HD MWF. Subjective Subjective Confused. No c/o. Had uneventful HD yesterday evening. JEYSON HD RN. Objective Objective Last 24 Hour Vital Signs Date Time Temp Pulse Resp B/P (MAP) Pulse Ox O2 Delivery O2 Flow Rate FiO2 05/19/20 08:32 98.9 86 19 147/86 (106) 97 05/19/20 04:00 98.5 95 20 146/75 (98) 95 05/19/20 00:41 81 123/73 (90) 05/18/20 23:52 98.0 94 18 165/78 (107) 95 05/18/20 21:29 Room Air 05/18/20 20:00 98.0 89 18 143/86 (105) 96 05/18/20 16:00 98.1 91 20 145/86 (105) 97 05/18/20 12:00 97.5 101 20 141/91 (108) 95 Intake and Output 05/18/20 05/19/20 19:00 07:00 Intake Total 240 ml 1750 ml Output Total 400 ml 2000 ml Balance -160 ml -250 ml Intake Oral 240 ml IV Total 1750 ml Output Urine Total 400 ml Hemodialysis UF 2000 ml # Voids 1 # Bowel Movements 3 2 Laboratory Tests 05/18/20 11:37: POC Whole Blood Glucose [Pending] 05/18/20 18:13: POC Whole Blood Glucose [Pending] 05/18/20 20:40: POC Whole Blood Glucose 63L 05/18/20 22:03: POC Whole Blood Glucose 88 05/19/20 05:08: POC Whole Blood Glucose 73L Height (Feet): 5 Height (Inches): 5.00 Weight (Pounds): 169 Objective Pale. Confused. CV RR Lungs CTA Abd SNT. BS + E No CCE. Stuart cath in place. Linda Robertson MD May 19, 2020 11:31
[2020-05-19 12:00] VITALS: BP 139/83
--- NOTE | 2020-05-19 13:49 | NUR ---
*-* INSURANCE *-* ALL AVAILABLE CLINICALS AND REVIEWS WERE FAXED BY DAISY [facility] SR AUTH#[id number] P:[phone] F: [phone]
[2020-05-19] MEDS: Metoclopramide 10mg/2ml Inj IVP SCH ×2 (13:57→21:12)
--- NOTE | 2020-05-19 14:08 | NUR ---
NURSE NOTES: Called [facility] Nephrology and s/w Herlinda. Informed Herlinda of HD treatment needed for tomorrow, 05/20/20. Per Herlinda, she will notify MARYLU Everett re HD tx planned for tomorrow. Awaiting call back for confirmation. Will continue to f/u.
--- NOTE | 2020-05-19 14:35 | Surgery Progress Note ---
Surgery Progress Note Subjective Additional Comments Patient seen exam at bedside. Looks better today improved. Is responsive. Denies pain. Had dialysis labs noted. Objective Last 24 Hour Vital Signs Date Time Temp Pulse Resp B/P (MAP) Pulse Ox O2 Delivery O2 Flow Rate FiO2 05/19/20 12:00 97.6 85 18 139/83 (101) 97 05/19/20 09:00 Room Air 05/19/20 08:32 98.9 86 19 147/86 (106) 97 05/19/20 04:00 98.5 95 20 146/75 (98) 95 05/19/20 00:41 81 123/73 (90) 05/18/20 23:52 98.0 94 18 165/78 (107) 95 05/18/20 21:29 Room Air 05/18/20 20:00 98.0 89 18 143/86 (105) 96 05/18/20 16:00 98.1 91 20 145/86 (105) 97 I&O Intake and Output 05/18/20 05/19/20 19:00 07:00 Intake Total 240 ml 1750 ml Output Total 400 ml 2000 ml Balance -160 ml -250 ml Intake Oral 240 ml IV Total 1750 ml Output Urine Total 400 ml Hemodialysis UF 2000 ml # Voids 1 # Bowel Movements 3 2 Dressing: dry Wound: clean, dry Cardiovascular: RSR Respiratory: clear Abdomen: soft, flat, non-tender, present bowel sounds Extremities: no edema, no tenderness, no cyanosis Laboratory Tests Test 05/18/20 18:13 05/18/20 20:40 05/18/20 22:03 05/19/20 05:08 POC Whole Blood Glucose Pending 63 MG/DL (74-106) L 88 MG/DL (74-106) 73 MG/DL (74-106) L Test 05/19/20 12:12 POC Whole Blood Glucose 86 MG/DL (74-106) Plan Problems: (1) Dehydration (2) Metabolic acidosis (3) MAHAD (acute kidney injury) (4) UGIB (upper gastrointestinal bleed) Assessment & Plan: Upper GI bleed coffee-ground emesis prior to admission hemoglobin drop on admission but currently has been stable. No active bleeding identified. Nausea and emesis have resolved. GI input appreciated. Considerations of scope at some time. Currently stable. No acute surgical intervention planned at this time We will follow with recommendations Trend H&H Okay for diet (5) Renal failure Assessment & Plan: Patient with renal insufficiency worsening renal function creatinine currently elevated and abnormal labs. Patient needs hemodialysis per nephrology does not have access at this time. Needs access urgently. We will plan for temporary Stuart catheter placement right away see note thank you procedure We will follow the recommendations Dialysis going well. Discharge planning upon scheduling of dialysis. (6) UTI (urinary tract infection) (7) Pneumonia Jere Da Silva May 19, 2020 14:35
--- NOTE | 2020-05-19 14:56 | NUR ---
MOVING PICTURE OPERATOR NOTES RECEIVED A CALL BACK FROM [facility] FROM [facility]. [facility] WILL NOT TRANSFER PT AT THIS TIME DUE TO LIMITED COVID 19 BEDS. [facility]RN MADE AWARE OF PT STARTING DIALYSIS WITH UPDATED CLINICALS FAXED TO [phone] MADE AWARE OF PLAN.
[2020-05-19 16:00] VITALS: BP 131/86
--- NOTE | 2020-05-19 16:05 | NUR ---
CASE MANAGEMENT:REVIEW SI:COVID-19 VIRAL POSITIVE. UPPER GI BLEED. ENCEPHALOPATHY. RENAL FAILURE REQUIRING HD. 97.6 85 18 139/83 97% ON RA H/H 8.6/26.6 IS: IVF NS BOLUS NA BICARB/NSS PROTONIX IV CEFEPIME IV PROSCAR PO FLOMAX PO \: MED SURG STATUS DCP: PATIENT IS FROM [facility] PLAN: HD IN AM
--- NOTE | 2020-05-19 17:12 | NUR ---
NURSE NOTES: Received confirmation from Young RN at [facility] Dialysis that she will be able to schedule patient for HD tx tomorrow, 05/20/2020.
--- NOTE | 2020-05-19 18:05 | NUR ---
NURSE NOTES: Pt noted with excoriation of the posterior scrotal area upon changing. Photos taken. Barrier cream applied and covered with optifoam.
--- NOTE | 2020-05-19 19:10 | NUR ---
HAND-OFF: Report given to MARYLU Ledezma. POC endorsed.
--- NOTE | 2020-05-19 19:30 | NUR ---
NURSE NOTES: Patient in bed, on room air, no SOB noted. No signs of pain. With IV access on bilateral arms, one is connected to IVF as ordered. with right IJ cath for dialysis, intact. Call light within reach. Bed in lowest, lock engaged and alarm on. Will continue plan of care.
[2020-05-19 20:00] VITALS: BP 135/71
--- NOTE | 2020-05-19 22:46 | General Progress Note ---
Assessment/Plan Assessment/Plan: Assessment - Coffee ground emesis - resolved - periodic N/V - likely due to GI tract COVID involvement - Anemia - drop in H&H likely dilutional - UTI - Renal failure- improved Cr - acidosis - OBS - COVID (+) Recommendations - Hydration - push po diet - PPI - Abx - monitor CBC - await transfer Subjective Allergies: Coded Allergies: NSAIDS (NON-STEROIDAL ANTI-INFLAMMA (Verified Allergy, Unknown, 05/14/20) Subjective Above noted Transfer plans noted no events overnight d/w RN appetite variable Objective Last 24 Hour Vital Signs Date Time Temp Pulse Resp B/P (MAP) Pulse Ox O2 Delivery O2 Flow Rate FiO2 05/19/20 20:00 98.1 81 19 135/71 (92) 96 05/19/20 16:00 97.9 83 17 131/86 (101) 98 05/19/20 12:00 97.6 85 18 139/83 (101) 97 05/19/20 09:00 Room Air 05/19/20 08:32 98.9 86 19 147/86 (106) 97 05/19/20 04:00 98.5 95 20 146/75 (98) 95 05/19/20 00:41 81 123/73 (90) 05/18/20 23:52 98.0 94 18 165/78 (107) 95 Intake and Output 05/18/20 05/19/20 19:00 07:00 Intake Total 240 ml 1750 ml Output Total 400 ml 2000 ml Balance -160 ml -250 ml Intake Oral 240 ml IV Total 1750 ml Output Urine Total 400 ml Hemodialysis UF 2000 ml # Voids 1 # Bowel Movements 3 2 Laboratory Tests 05/19/20 05:08: POC Whole Blood Glucose 73L 05/19/20 12:12: POC Whole Blood Glucose 86 05/19/20 16:57: POC Whole Blood Glucose 95 05/19/20 21:16: POC Whole Blood Glucose [Pending] Height (Feet): 5 Height (Inches): 5.00 Weight (Pounds): 169 Objective Vital signs noted exam deferred due to COVID (+) Wolfgang Lopez MD May 19, 2020 22:46
[2020-05-20] VITALS: BP 128/69
[2020-05-20 04:00] VITALS: BP 113/54
[2020-05-20 05:50] LABS: BASOPHILS % (AUTO) 0.5 % (0.0-2.0); EOSINOPHILS % (AUTO) 3.6 % (0.0-3.0); HEMATOCRIT 25.3 % (42.0-52.0); HEMOGLOBIN 8.1 G/DL (14.2-18.0); MEAN CORPUSCULAR VOLUME 91 FL (80-99); MONOCYTES % (AUTO) 9.2 % (1.0-10.0); NEUTROPHILS % (AUTO) 74.7 % (45.0-75.0); PLATELET COUNT 309 K/UL (150-450); RED BLOOD COUNT 2.78 M/UL (4.70-6.10); RED CELL DISTRIBUTION WIDTH 15.7 % (11.6-14.8); WHITE BLOOD COUNT 6.5 K/UL (4.8-10.8)
[2020-05-20] MEDS: NovoLOG Insulin Flexpen SUBQ SCH ×3 (05:50→16:30)
[2020-05-20] MEDS: Metoclopramide 10mg/2ml Inj IVP SCH ×2 (05:53→14:27)
[2020-05-20] MEDS ORDERED: Heparin Sod 1000 units/ml 10ml IV PRN (06:00)
[2020-05-20 06:04] LABS: ANION GAP 16 mmol/L (5-15); BLOOD UREA NITROGEN 53 mg/dL (7-18); CALCIUM 7.3 MG/DL (8.5-10.1); CARBON DIOXIDE 23 MMOL/L (21-32); CHLORIDE 98 MMOL/L (98-107); CREATININE 5.2 MG/DL (0.55-1.30); SODIUM 137 MMOL/L (136-145)
--- NOTE | 2020-05-20 06:58 | NUR ---
NURSE NOTES: Dr. Fatima made aware of patient's potassium of 3.0. Obtained order of Potassium 40 meq PO.
--- NOTE | 2020-05-20 07:41 | NUR ---
HAND-OFF: Report given to MARYLU Alegria.
--- NOTE | 2020-05-20 07:53 | General Progress Note ---
Assessment/Plan Assessment/Plan: IMPRESSION GIB coffee ground emesis anemia acute on CKD chronic encephalopathy PCM severe dementia UTI COVID+ PLAN HD gilbert IV antibiotics as per ID gi follow up renal follow up and clearance and monitor renal function closely DNR dc once HD in place impression, plan, and exam edited and reviewed in detail care discussed with RN Subjective Allergies: Coded Allergies: NSAIDS (NON-STEROIDAL ANTI-INFLAMMA (Verified Allergy, Unknown, 05/14/20) Subjective gi noted COVID+ for HD labs reviewed Objective Last 24 Hour Vital Signs Date Time Temp Pulse Resp B/P (MAP) Pulse Ox O2 Delivery O2 Flow Rate FiO2 05/20/20 04:00 97.3 67 19 113/54 (73) 96 05/20/20 00:00 98.7 78 19 128/69 (88) 95 05/19/20 21:00 Room Air 05/19/20 20:00 98.1 81 19 135/71 (92) 96 05/19/20 16:00 97.9 83 17 131/86 (101) 98 05/19/20 12:00 97.6 85 18 139/83 (101) 97 05/19/20 09:00 Room Air 05/19/20 08:32 98.9 86 19 147/86 (106) 97 Intake and Output 05/19/20 05/20/20 19:00 07:00 Intake Total 1505 ml Balance 1505 ml IV Total 1105 ml Other 400 ml # Voids 1 # Bowel Movements 1 Laboratory Tests 05/19/20 12:12: POC Whole Blood Glucose 86 05/19/20 16:57: POC Whole Blood Glucose 95 05/19/20 21:16: POC Whole Blood Glucose [Pending] 05/20/20 04:40: White Blood Count 6.5, Red Blood Count 2.78L, Hemoglobin 8.1L, Hematocrit 25.3L , Mean Corpuscular Volume 91, Mean Corpuscular Hemoglobin 29.1, Mean Corpuscular Hemoglobin Concent 32.0, Red Cell Distribution Width 15.7H, Platelet Count 309, Mean Platelet Volume 4.9L, Neutrophils (%) (Auto) 74.7, Lymphocytes (%) (Auto) 12.0L, Monocytes (%) (Auto) 9.2, Eosinophils (%) (Auto) 3.6H, Basophils (%) (Auto) 0.5, Sodium Level 137, Potassium Level 3.0L, Chloride Level 98, Carbon Dioxide Level 23, Anion Gap 16H, Blood Urea Nitrogen 53H, Creatinine 5.2H, Estimat Glomerular Filtration Rate 10.7, Glucose Level 81 , Calcium Level 7.3L Height (Feet): 5 Height (Inches): 5.00 Weight (Pounds): 169 Objective deferred due to possible COVID Ross Fatima MD May 20, 2020 07:53
[2020-05-20 08:00] VITALS: BP 118/59
--- NOTE | 2020-05-20 08:04 | NUR ---
NURSE NOTES: Report received from MARYLU Ledezma. Pt awake in bed, alert and oriented x 1-2, no SOB, bed in lowest position with alarm on and breaks engaged, IV line on left forearm patent and intact, no c/o any discomfort at this time, on contact and droplet isolation for positive COVID 19, will continue to monitor and proceed with plan of care. Call light within reach.
[2020-05-20] MEDS: Tamsulosin 0.4mg cap ORAL SCH (08:41)
[2020-05-20] MEDS: Sennosides 8.6mg tab ORAL SCH (08:41)
[2020-05-20] MEDS: Cefepime HCl 1 GM in D5W 55 ML IVPB SCH (08:42)
[2020-05-20] MEDS: Multivitamin w/Minerals tab ORAL SCH (08:42)
[2020-05-20] MEDS: Pantoprazole Inj IVP SCH (08:42)
[2020-05-20] MEDS: Ascorbic Acid 500mg tab ORAL SCH (08:42)
--- NOTE | 2020-05-20 09:16 | Surgery Progress Note ---
Surgery Progress Note Subjective Additional Comments covid + respiratory stable labs noted HD planned line okay Objective Last 24 Hour Vital Signs Date Time Temp Pulse Resp B/P (MAP) Pulse Ox O2 Delivery O2 Flow Rate FiO2 05/20/20 08:00 97.5 73 20 118/59 (78) 97 05/20/20 04:00 97.3 67 19 113/54 (73) 96 05/20/20 00:00 98.7 78 19 128/69 (88) 95 05/19/20 21:00 Room Air 05/19/20 20:00 98.1 81 19 135/71 (92) 96 05/19/20 16:00 97.9 83 17 131/86 (101) 98 05/19/20 12:00 97.6 85 18 139/83 (101) 97 I&O Intake and Output 05/19/20 05/20/20 19:00 07:00 Intake Total 1505 ml Balance 1505 ml IV Total 1105 ml Other 400 ml # Voids 1 # Bowel Movements 1 Dressing: other Wound: other Drains: other Cardiovascular: RSR Respiratory: decreased breath sounds Abdomen: soft, non-tender, present bowel sounds Extremities: no edema, no tenderness, no cyanosis Laboratory Tests Test 05/19/20 12:12 05/19/20 16:57 05/19/20 21:16 05/20/20 04:40 POC Whole Blood Glucose 86 MG/DL (74-106) 95 MG/DL (74-106) Pending White Blood Count 6.5 K/UL (4.8-10.8) Red Blood Count 2.78 M/UL (4.70-6.10) L Hemoglobin 8.1 G/DL (14.2-18.0) L Hematocrit 25.3 % (42.0-52.0) L Mean Corpuscular Volume 91 FL (80-99) Mean Corpuscular Hemoglobin 29.1 PG (27.0-31.0) Mean Corpuscular Hemoglobin Concent 32.0 G/DL (32.0-36.0) Red Cell Distribution Width 15.7 % (11.6-14.8) H Platelet Count 309 K/UL (150-450) Mean Platelet Volume 4.9 FL (6.5-10.1) L Neutrophils (%) (Auto) 74.7 % (45.0-75.0) Lymphocytes (%) (Auto) 12.0 % (20.0-45.0) L Monocytes (%) (Auto) 9.2 % (1.0-10.0) Eosinophils (%) (Auto) 3.6 % (0.0-3.0) H Basophils (%) (Auto) 0.5 % (0.0-2.0) Sodium Level 137 MMOL/L (136-145) Potassium Level 3.0 MMOL/L (3.5-5.1) L Chloride Level 98 MMOL/L (98-107) Carbon Dioxide Level 23 MMOL/L (21-32) Anion Gap 16 mmol/L (5-15) H Blood Urea Nitrogen 53 mg/dL (7-18) H Creatinine 5.2 MG/DL (0.55-1.30) H Estimat Glomerular Filtration Rate 10.7 mL/min (>60) Glucose Level 81 MG/DL (74-106) Calcium Level 7.3 MG/DL (8.5-10.1) L Plan Problems: (1) Dehydration (2) Metabolic acidosis (3) MAHAD (acute kidney injury) (4) UGIB (upper gastrointestinal bleed) Assessment & Plan: Upper GI bleed coffee-ground emesis prior to admission hemoglobin drop on admission but currently has been stable. No active bleeding identified. Nausea and emesis have resolved. GI input appreciated. Considerations of scope at some time. Currently stable. No acute surgical intervention planned at this time We will follow with recommendations Trend H&H Okay for diet (5) Renal failure Assessment & Plan: Patient with renal insufficiency worsening renal function creatinine currently elevated and abnormal labs. Patient needs hemodialysis per nephrology does not have access at this time. Needs access urgently. We will plan for temporary Stuart catheter placement right away see note thank you procedure We will follow the recommendations Dialysis going well. Discharge planning upon scheduling of dialysis. (6) UTI (urinary tract infection) (7) Pneumonia Jere Da Silva May 20, 2020 09:16
--- NOTE | 2020-05-20 11:06 | NUR ---
CASE MANAGEMENT:REVIEW 05/20/20 SI:COVID-19 VIRAL POSITIVE. UPPER GI BLEED. ENCEPHALOPATHY. RENAL FAILURE REQUIRING HD. 97.5 73 20 118/59 97% ON RA H/H 8.1/25.3 K+ 3.0 BUN 53/5.2 CA+7.3 IS: HEPARIN SQ X1 IV CEFEPIME QD IV PROTONIX BID PROSCAR PO QD FLOMAX PO QD \: 4E MED SURG STATUS DCP: PATIENT IS FROM [facility] PLAN: HD THIS AM DC PLANNING
--- NOTE | 2020-05-20 11:41 | NUR ---
*-* INSURANCE *-* ALL AVAILABLE CLINICALS AND REVIEWS WERE FAXED BY DAISY GRIFFITH SR AUTH#[id number] P:[phone] F: [phone]
--- NOTE | 2020-05-20 11:42 | Nephrology Progress Note ---
Assessment/Plan Plan Acute Nonoliguric Renal Failure. HD started. On HD MWF. Subjective Subjective Confused. No c/o. Had uneventful HD yesterday evening. EJYSON HD RN. Objective Objective Last 24 Hour Vital Signs Date Time Temp Pulse Resp B/P (MAP) Pulse Ox O2 Delivery O2 Flow Rate FiO2 05/20/20 09:00 Room Air 05/20/20 08:00 97.5 73 20 118/59 (78) 97 05/20/20 04:00 97.3 67 19 113/54 (73) 96 05/20/20 00:00 98.7 78 19 128/69 (88) 95 05/19/20 21:00 Room Air 05/19/20 20:00 98.1 81 19 135/71 (92) 96 05/19/20 16:00 97.9 83 17 131/86 (101) 98 05/19/20 12:00 97.6 85 18 139/83 (101) 97 Intake and Output 05/19/20 05/20/20 19:00 07:00 Intake Total 1505 ml Balance 1505 ml IV Total 1105 ml Other 400 ml # Voids 1 # Bowel Movements 1 Laboratory Tests 05/19/20 12:12: POC Whole Blood Glucose 86 05/19/20 16:57: POC Whole Blood Glucose 95 05/19/20 21:16: POC Whole Blood Glucose [Pending] 05/20/20 04:40: White Blood Count 6.5, Red Blood Count 2.78L, Hemoglobin 8.1L, Hematocrit 25.3L , Mean Corpuscular Volume 91, Mean Corpuscular Hemoglobin 29.1, Mean Corpuscular Hemoglobin Concent 32.0, Red Cell Distribution Width 15.7H, Platelet Count 309, Mean Platelet Volume 4.9L, Neutrophils (%) (Auto) 74.7, Lymphocytes (%) (Auto) 12.0L, Monocytes (%) (Auto) 9.2, Eosinophils (%) (Auto) 3.6H, Basophils (%) (Auto) 0.5, Sodium Level 137, Potassium Level 3.0L, Chloride Level 98, Carbon Dioxide Level 23, Anion Gap 16H, Blood Urea Nitrogen 53H, Creatinine 5.2H, Estimat Glomerular Filtration Rate 10.7, Glucose Level 81 , Calcium Level 7.3L Height (Feet): 5 Height (Inches): 5.00 Weight (Pounds): 169 Objective Pale. Confused. CV RR Lungs CTA Abd SNT. BS + E No CCE. Stuart cath in place. Linda Robertson MD May 20, 2020 11:42
[2020-05-20] MEDS ORDERED: Heparin 1000 units/ml 1ml Vial INJ PRN (11:45)
[2020-05-20 12:00] VITALS: BP 126/65
--- NOTE | 2020-05-20 12:22 | CDS Physician Query ---
Clarification is required for compliance, coding accuracy, and to reflect severity of illness for this patient. Dear Dr. Ross Fatima MD Date: CDI: Shady Porras "80-year-old man brought in for coffee-ground emesis with no prior gastrointestinal issues in the past. Patient with underlying CKD and now acute decompensation A Hagen catheter has been placed. Per ER, patient also with possible UTI" [h&P Ross Fatima MD 05/19] IMPRESSION: Upper GI bleed, Acute kidney injury, likely from dehydration, possible sepsis associated with acute kidney injury. Metabolic acidosis, likely from lactic acidosis and possible ketoacidosis, 2 ketones are 1+, Pyuria, rule out UTI, rule out sepsis. [Consul. N Alexsander Hughes M.D.. 05/14] CLINICAL FINDINGS SHOW: VITALS (05/14): T97.3F, Pulse 105, LABS(05/14): Hemat : WBC 12.1, Neutr% 93 Chem: Glucose 118, Creatinine 9.2, Alb. 2.9 Urine: Ur.Bacteria "Moderate H", Ur.Leuk Esterase 3+ URINE CULTURE(05/14) Organism 1 PROTEUS MIRABILIS COLONY COUNT: >100,000 CFU /ML Organism 2 STAPHYLOCOCCUS AUREUS COLONY COUNT: >100,000 CFU/ML Medications: Azithromycin 500 IV (05/14), Cefepime IV (05/14-05/22), A possible diagnosis of SEPSIS was made in the medical record on Alexsander Hughes M.D. consulting notes. Upon review, it is difficult to determine whether this diagnosis has been ruled in, ruled out,or is still being worked up. Please indicate below the status of the aforementioned diagnosis. [] Ruled IN [x] Ruled out [] Other Present on Admission: [x] Yes [] No [] Clinically Undetermined Physician signature Date Please also document in your Progress Notes and/or Discharge Summary and indicate if the condition was present on admission. MTDD
--- NOTE | 2020-05-20 12:52 | NUR ---
DISCHARGE PLANNING SPOKE TO ANA FROM [facility] INFORMED THIS CM THAT NO CM ASSIGNED CM CHANGE DAILY ANA TO ASSIGN A CM TODAY CM TO CALL BACK TO DISCUSS HD ARRANGEMENTS AND TRANSFER UPDATE
--- NOTE | 2020-05-20 12:54 | NUR ---
RD ASSESSMENT & RECOMMENDATIONS SEE CARE ACTIVITY FOR COMPLETE ASSESSMENT DAILY ESTIMATED NEEDS: Needs based on Renal, acute on CKD, now HD 59kg 25-35 kcals/kg 2923-0561 total kcals 1.2-1.8 g protein/kg 71-106 g total protein Fluid per MD NUTRITION DIAGNOSIS: 1) Decreased sodium needs r/t renal dysfunction as evidenced by pt w/ acute on CKD, Creat now 8.0, BUN 108, pt started on HD. 2) Increased kcal and pro needs r/t renal dysfunction as evidenced by esrd now on HD. CURRENT DIET: Renal -> now CLD PO DIET RECOMMENDATIONS: Renal/ [place] diet as tolerated ADDITIONAL RECOMMENDATIONS: 1) Monitor renal status, HD- now on HD 2) Obtain a calibrated bed scale wt for eval 3) Add Nepro 1 tetra w/ meals w/ current variable po intake -> now on CLD-> Add Ensure Clear TID w/ meals 4) Pt w/ poor po and hypoglycemic event-> as medically able, rec Low rate D5 to maintain BG wnl
--- NOTE | 2020-05-20 13:26 | NUR ---
Discharge planning: DAISY spoke to Rosi from [facility] made aware of patients need for HD upon discharge Rosi determined that patient should be transferred for further care management Rosi will call back with time Nurses station number provided
[2020-05-20] MEDS ORDERED: METOCLOPRAM5 MG/1 M2 IV (14:52)
[2020-05-20 16:00] VITALS: BP 131/68
--- NOTE | 2020-05-20 16:00 | NUR ---
CASE MANAGEMENT: NOTE CALL RECEIVED FROM NURSING REGARDING ACCEPTING [facility] CALL PLACED TO [facility] [phone] CM S/W DAVID (FITTER HELPER) PATIENT HAS BEEN ACCEPTED TO [facility] ACCEPTING PENDING CM CONFIRMED THAT [facility] HAS THE NUMBER TO NURSES [facility] TRANSFER FORM TO BE DELIVERED TO FLOOR [facility] [place] CONFIRMED THAT CLINICALS PACKET IS AVAILABLE AND IMAGING ON DC IS AT [facility]
--- NOTE | 2020-05-20 18:25 | NUR ---
NURSE NOTES: Called [facility] and gave report to MARYLU Martinez. P/U time is 1999.
--- NOTE | 2020-05-20 19:35 | NUR ---
HAND-OFF: Report given to MARYLU Gonzales. P stable in bed with no apparent distress. Endorsed plan of care.
--- NOTE | 2020-05-20 19:50 | NUR ---
NURSE NOTES: Received report from MARYLU Alegria. AAO x 1, on room air. HD access on R upper chest intact. IV site intact. Waiting for embulance to transfer [employer]. No acute distress noted. No labored breathing. Isolation maintained. Bed locked, lowest position, side rails up, alarm on, call light within reach. Will continue to monitor.
[2020-05-20 19:59] VITALS: BP 150/87
--- NOTE | 2020-05-20 20:49 | NUR ---
NURSE NOTES: Ambulance came @ 2015 and pt discharged with stable condition. Discharge education given but pt is not able to understand. No belongings noted. All discharge papers sent with patient. Removed ID band.
[2020-05-20] MEDS ORDERED: Epoetin Alfa-EPBX (NON ESRD)4000 units/ml vial SUBQ SCH (21:00)
--- NOTE | 2020-05-22 16:12 | Discharge Summary ---
Discharge Summary Discharge Summary _ DATE OF ADMISSION: 05/14/2020 DATE OF DISCHARGE: 05/20/2020 DISCHARGED BY: Dr. Kalani Fatima CONSULTANTS: Dr. Linda Lopez BRIEF HOSPITAL COURSE: Patient is an 80-year-old male who was brought into ED due to coffee- ground emesis. There was no prior history of GI bleed in the past. He has underlying CKD, dementia, hypertension, BPH, atherosclerosis and was diagnosed with COVID 3 weeks prior. Upon evaluation at the ED, vital signs were stable. Blood work showed WBC of 12 , hemoglobin 10.8, hematocrit 33.9. Platelet count 378. Electrolytes are normal. Creatinine was markedly elevated to 9.2. Lactic acid 1.9. Urinalysis showed 3+ leukocyte esterase, too numerous to count urine WBC, 5-10 urine RBC. EKG showed sinus rhythm with no acute ischemic changes. Chest x-ray showed left lower lung infiltrate as read by ED physician. He was started empirically on antibiotics. Patient insurance was unable to facilitate transfer in a timely manner, patient was then admitted to the hospital for evaluation of upper GI bleed, pneumonia, renal failure and UTI. He was given IV hydration with bicarb. He was given proton pump inhibitors. He was initially placed on n.p.o. COVID testing was positive. There was a drop in hemoglobin, likely dilutional. There was no further hematemesis. Diet was advanced. Patient required hemodialysis. A temporary dialysis catheter was inserted to the right internal jugular vein. He was then given inpatient hemodialysis with improvement in kidney function. Patient was eventually transferred to contracted facility. FINAL DIAGNOSES: Upper GI bleed Anemia Acute nonoliguric renal failure with initiation of hemodialysis COVID-19 infection Chronic encephalopathy Severe protein calorie malnutrition Dementia Urinary tract infection with Proteus and staph aureus DISPOSITION: Patient was transferred to [facility]. DISCHARGE MEDICATIONS: Refer to Discharge Medication List. I have been assigned to complete a discharge summary on this account, I was not involved with the patient's management.--LUBA Ortiz Jacqueline Robles NP May 22, 2020 16:12
--- NOTE | 2020-05-23 11:42 | NUR ---
*-* INSURANCE *-* DISCHARGE SUMMARY HAS BEEN FAXED TO: GLADIS CARVER AUTH#[id number] P:[phone] F: [phone]
== END 2020-05-20 20:17 | disposition short-term general hospital (02) | DRG 682 ==
LOC: EDBD 08:25 → EMR 09:00 → EDBEDREQ 10:19 → EDBEDREQSVC 10:19 → EDBEDREQ 10:21 → 4E 11:39 → EDBEDREQ 11:47 → 4E 12:31
PROC: 05HM33Z Insertion of Infusion Device into Right Internal Jugular Vein, Percutaneous Approach (ICD-10-PCS; principal; 2020-05-18)
PROC: 5A1D70Z Performance of Urinary Filtration, Intermittent, Less than 6 Hours Per Day (ICD-10-PCS; principal; 2020-05-18)
DX: N17.9 Acute kidney failure, unspecified (principal); E43 Unspecified severe protein-calorie malnutrition; U07.1 COVID-19; K92.2 Gastrointestinal hemorrhage, unspecified; E87.2 Acidosis; N39.0 Urinary tract infection, site not specified; G93.40 Encephalopathy, unspecified; N18.4 Chronic kidney disease, stage 4 (severe); E86.0 Dehydration; I13.10 Hypertensive heart and chronic kidney disease without heart failure, with stage 1 through stage 4 chronic kidney disease, or unspecified chronic kidney disease; B96.4 Proteus (mirabilis) (morganii) as the cause of diseases classified elsewhere; B95.61 Methicillin susceptible Staphylococcus aureus infection as the cause of diseases classified elsewhere; F01.50 Vascular dementia, unspecified severity, without behavioral disturbance, psychotic disturbance, mood disturbance, and anxiety; I70.90 Unspecified atherosclerosis; N40.1 Benign prostatic hyperplasia with lower urinary tract symptoms; R33.8 Other retention of urine; Z79.4 Long term (current) use of insulin; Z88.6 Allergy status to analgesic agent; Z66 Do not resuscitate
CPT/HCPCS: 36415; 36569; 71045; 76770; 76937; 80048; 80053; 81003; 82550; 82962; 83605; 83880; 84550; 85007; 85025; 85610; 85730; 86706; 86850; 86900; 86901; 87040; 87081; 87086; 87181; 93005; 96361; 96365; 96367; 96375; 99285; J1815; J2405; J2765; J7030; J8499